=== PATIENT | female | born 1995 | race Asian ===

== ENCOUNTER → 2020-05-21 07:50 | Outpatient (CLI) | payer OTHER, SELFPAY ==
[2020-05-21 09:45] LABS: Hematocrit 33.6 % (36-46); Hemoglobin 11.2 g/dL (12.0-16.0)
[2020-05-21 10:14] LABS: GTT (PREG) 1 Hour PP 50gm Dose 145 mg/dL (76-139)
== END ==
PROVIDERS: PCP Student in an Organized Health Care Education/Training Program; Referring Provider Obstetrics & Gynecology; Visit Provider Obstetrics & Gynecology
DX: Z34.02 Encounter for supervision of normal first pregnancy, second trimester (principal)
CPT/HCPCS: 36415; 82950; 85014; 85018

== ENCOUNTER → 2020-05-27 07:49 | Outpatient (CLI) | payer OTHER, SELFPAY ==
[2020-05-27 09:04] LABS: Glucose Fasting Gestational 92 mg/dL (76-95)
[2020-05-27 10:35] LABS: Glucose 2 Hour Gest 121 mg/dL (76-155)
[2020-05-27 10:46] LABS: Glucose 1 Hour Gest 133 mg/dL (76-180)
[2020-05-27 11:10] LABS: Glucose Tol Interp,Gestational INTERPRETATION
[2020-05-27 11:41] LABS: Glucose 3 Hour Gest 122 mg/dL (76-140)
== END ==
PROVIDERS: PCP Student in an Organized Health Care Education/Training Program; Referring Provider Obstetrics & Gynecology; Visit Provider Obstetrics & Gynecology
DX: R73.09 Other abnormal glucose (principal)
CPT/HCPCS: 36415; 82951; 82952

== ENCOUNTER → 2020-07-31 12:03 | Outpatient (CLI) | payer OTHER, SELFPAY ==
[2020-08-01 11:21] LABS: Strep Grp B PCR NEG for Grp B Strep
== END ==
PROVIDERS: PCP Student in an Organized Health Care Education/Training Program; Visit Provider Obstetrics & Gynecology
DX: Z34.03 Encounter for supervision of normal first pregnancy, third trimester (principal); Z3A.36 36 weeks gestation of pregnancy
CPT/HCPCS: 87653

== ENCOUNTER 2020-08-17 07:24 | Inpatient (IN) | payer OTHER, SELFPAY ==
[2020-08-17 08:54] LABS: Add Manual Diff / Slide Review NO; Basophils Absolute Auto 100 /uL (0-100); Basophils Percent Auto 0.4 % (0-2); Eosinophils Absolute Auto 100 /uL (0-450); Eosinophils Percent Auto 0.4 % (2-4); Hematocrit 33.6 % (36-46); Hemoglobin 10.9 g/dL (12.0-16.0); Lymphocytes Absolute Auto 1100 /uL (1100-4500); Lymphocytes Percent Auto 5.8 % (25-40); Mean Corpuscular HGB Conc 32.6 % (30-36); Mean Corpuscular Hemoglobin 26.7 PG (26-34); Monocytes Absolute Auto 1000 /uL (0-900); Monocytes Percent Auto 5.5 % (3-14); Neutrophils Absolute Auto 16600 /uL (1500-7000); Neutrophils Percent Auto 87.9 % (50-75); Platelet Count 284 X10^3/uL (150-400); Red Blood Cell Count 4.09 X10^6/uL (4.0-5.2); Red Cell Distribution Width 14.9 % (11.6-14.8); White Blood Cell Count 18.8 X10^3/uL (4.5-11.0)
[2020-08-17 10:04] LABS: COVID19 - ADMIT (NP swab/PCR) Negative (Negative)
--- NOTE | 2020-08-17 11:18 | P.PCN_ITS ---
Regional Block Pre-procedure Procedure: Continuous Lumbar Epidural for L&D Attending OB provider: Lynette Paul PMH/ROS narrative: term labor, GHTN, well controlled on labetolol, no other complications. Hx: No personal or family history of anesthesia problems. ASA Class: II Labs: Hct 33.6 % (36-46) L 08/17/20 08:30 Plt Count 284 X10^3/uL (150-400) 08/17/20 08:30 Medications: Current Medications Generic Name Dose Route Start Last Admin Trade Name Freq PRN Reason Stop Dose Admin Calcium Carbonate 500 mg 08/17/20 07:48 Calcium Carbonate 500 Mg Tab PO Q2HR PRN Dyspepsia Carboprost Tromethamine 250 mcg 08/17/20 07:48 Carboprost 250 Mcg/Ml Ampul IM Q90M PRN Bleeding Diphenhydramine HCl 25 mg 08/17/20 10:38 Diphenhydramine 50 Mg/Ml Vial IV Q10M PRN Pruritis Fentanyl 50 mcg 08/17/20 07:48 Fentanyl 100 Mcg/2 Ml Inj IV Q1H PRN Pain, Moderate (4-6) Lactated Ringer's 1,000 mls @ 100 mls/hr 08/17/20 08:00 Lactated Ringers IV CONT EDGAR Oxytocin/Lactated Ringer's 30 unit in 500 mls @ 200 mls/hr 08/17/20 07:48 Oxytocin Premix IV CONT PRN Bleeding Protocol Tranexamic Acid 1,000 mg/ 100 mls @ 400 mls/hr 08/17/20 07:48 Sodium Chloride IV NOW PRN Bleeding FENT 2MCG/ML BUPIV 0.125% EPI 200 mcg in 100 mls @ 6 mls/hr 08/17/20 10:45 Fentanyl/Bupiv/Ns 2mcg/Ml - 0.125% EPIDURAL CONT EDGAR Methylergonovine Maleate 0.2 mg 08/17/20 07:48 Methylergonovine 0.2 Mg Tablet PO Q6HR PRN Heavy Bleeding Methylergonovine Maleate 0.2 mg 08/17/20 07:48 Methylergonovine 0.2 Mg/Ml Vial IM NOW PRN Bleeding Metoclopramide HCl 10 mg 08/17/20 07:48 Metoclopramide 10 Mg/2 Ml Inj IV NOW PRN Nausea And Vomiting Misoprostol 800 mcg 08/17/20 07:48 Misoprostol 200 Mcg Tablet NC NOW PRN Bleeding Misoprostol 1,000 mcg 08/17/20 07:48 Misoprostol 200 Mcg Tablet NC NOW PRN Bleeding Misoprostol 400 mcg 08/17/20 07:48 Misoprostol 200 Mcg Tablet SL NOW PRN Bleeding Naloxone HCl 0.2 mg 08/17/20 07:48 Naloxone 0.4 Mg/Ml Vial IV Q2MIN PRN Opiate Reversal Ondansetron HCl 4 mg 08/17/20 07:48 Ondansetron 4 Mg/2 Ml Inj IV Q4HR PRN Nausea And Vomiting Oxytocin 10 unit 08/17/20 07:48 Oxytocin 10 Unit/Ml Vial IM NOW PRN Bleeding Allergies: Allergies Allergy/AdvReac Type Severity Reaction Status Date / Time No Known Drug Allergies Allergy Verified 08/14/20 13:09 Procedure Insertion date: 08/17/20 Insertion time: 11:19 Prep/Local: betadine x3 Interspace: L2-3 Patient position: sitting Needle: 18 gauge [facility] Laboratory (CSE: 27g Pencan through [place], clear CSF, 1mL 0.25% bupiv) Loss of resistance with: saline ARDEN at (cm): 4 Catheter placed at SKIN (cm): 9 Catheter in SPACE (cm): 5 Insertion: No CSF, No Blood, No Paresthesia with insertion, No Paresthesia with injection and No Test dose reaction Initial Medications TEST DOSE time: 11:00 TEST DOSE: 1.5% lidocaine with epinephrine 1:200k (mL): 3 BOLUS DOSE time: 11:05 BOLUS DOSE (mL): 3 BOLUS DOSE med: other (infusate) Infusion INFUSION: 0.125% bupivacaine and with fentanyl 2 mcg/mL Initial rate (mL/hr): 6 Post-procedure Anesthesia time START: 10:50 Anesthesia time END: 14:35 Post-procedure Anesthesia Assessment: Yes CV function: HR/BP stable, Yes Resp function: RR/sat/airway adequate, Yes Post-op hydration adequate, Yes Pain control adequate, Yes Nausea & vomiting absent, Yes Mental status appropriate and No Anesthesia complications
--- NOTE | 2020-08-17 11:50 | P.HPOB_ITS ---
OB HPI Date/Time Date of admission: 08/17/20 Date Patient Seen: 08/17/20 Time Patient Seen: 10:10 History of Present Condition Chief complaint: LABOR : 1 Para: 0 Estimated Date of Delivery: 08/23/20 Estimated Gestational Age (weeks): 39+1 Narrative: Gail Gan is a 24 year old female 1 para 0 at 39-,1/7 weeks gestation who presents in active labor. Her contractions began at about 3:00 a.m. in the morning. By 630 they were regular every 3-5 minutes. She presented to Labor and delivery and was 4 cm dilated. History of Present care: good care, initiated at week # (11), number of visits (11) and pounds weight gain (47) Dating criteria: LMP confirmed by 1st trimester US Ultrasounds: normal 1st trimester US and normal mid trimester US Obstetrical complications: none Medical complications: none Preadmission Labs Blood type: O (+) positive -: Antibody screen: negative, GBS status: negative, HBsAG: negative, HIV: negative and RPR/VDLR: negative -: Chlamydia screen: not detected and Gonorrhea screen: not detected -: Rubella: immune and Varicella: immune HCT: 33.6 PAP: Abnormal (LGSIL) Integrated screen: Normal Urine: Negative 1 hr GTT: 145 3 hr GTT: 1 hr (133), 2 hr (121) and 3 hr (122) Fasting blood glucose: 92 Evaluation Evaluation Baseline heart rate: 140 Variability: Average (6-10) monitor accelerations: Present monitor decelerations: Variable Contraction Frequency (minutes): 3 Uterine Contraction Intensity: Strong/Firm Status: Category ll Cervical dilation (cm): 6 Cervical effacement (%): 100 station: -1 Laboratory results: Laboratory Tests 08/17/20 08/17/20 08/17/20 08:30 08:30 08:30 WBC 18.8 H RBC 4.09 Hgb 10.9 L Hct 33.6 L MCV 82.0 MCH 26.7 MCHC 32.6 RDW 14.9 H Plt Count 284 Neut % (Auto) 87.9 H Lymph % (Auto) 5.8 L [place] % (Auto) 5.5 Eos % (Auto) 0.4 L Baso % (Auto) 0.4 Neut # (Auto) 66669 H Lymph # (Auto) 1100 [place] # (Auto) 1000 H Eos # (Auto) 100 Baso # (Auto) 100 SARS-CoV-2 (PCR) Negative Blood Type O Positive Antibody Screen Negative PFSH Medical History (Updated 06/08/20 @ 21:22 by Terri Pedroza) Abnormal Pap smear of cervix (~2016) Chlamydia (~2019) Myopia Family History (Updated 05/21/20 @ 14:53 by Renee Dahl RN) Mother No problems noted. 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 ) Type(s) of exercise: walking and bicycling (has home gym. ) frequency: 3-4 times per week Meds Home Medications and Allergies Home Medications Medication Instructions Recorded Confirmed Type prenat.vits,juliano,[id number] 1 tab PO DAILY 05/21/20 08/14/20 History labetalol 100 mg tablet 100 mg PO DAILY #30 tab 05/27/20 08/14/20 Rx Double Electric breast Pump and #1 ea 06/19/20 08/14/20 Rx Supplies nystatin-triamcinolone 100,000 1 applic TOPICAL BID #30 g 07/17/20 08/14/20 Rx unit/gram-0.1 % topical ointment fluconazole 150 mg tablet 150 mg PO ONCE #1 tab 07/31/20 08/14/20 Rx Allergies Allergy/AdvReac Type Severity Reaction Status Date / Time No Known Drug Allergies Allergy Verified 08/14/20 13:09 Exam Vital Signs (past 8 hours): Generally: Patient comfortable with epidural in place Lungs: Clear to auscultation bilaterally Cardiovascular: Regular rate and rhythm Fundal height: 40 cm Estimated weight 7 1/2 to 8 lb Extremities: Trace edema, 1+ DTRs Objective Labs Result Diagrams: 08/17/20 08:30 Labs: Laboratory Results - last 24 hr 08/17/20 08/17/20 08/17/20 08:30 08:30 08:30 WBC 18.8 H RBC 4.09 Hgb 10.9 L Hct 33.6 L MCV 82.0 MCH 26.7 MCHC 32.6 RDW 14.9 H Plt Count 284 Neut % (Auto) 87.9 H Lymph % (Auto) 5.8 L [place] % (Auto) 5.5 Eos % (Auto) 0.4 L Baso % (Auto) 0.4 Neut # (Auto) 70895 H Lymph # (Auto) 1100 [place] # (Auto) 1000 H Eos # (Auto) 100 Baso # (Auto) 100 SARS-CoV-2 (PCR) Negative Blood Type O Positive Antibody Screen Negative Assessment and Plan Assessment and Plan Assessment and Plan narrative: Assessment: 24-year-old 1 para 0 at 39-,1/7 weeks gestation in active labor Comfortable with epidural Plan: AROM with moderate meconium-stained amniotic fluid Baby had several decels after rupture of membranes. Oxygen placed per face mask. IV fluid bolus given. Patient placed on her left side. Pediatrics notified OR notified Time Spent with Patient Total time spent with greater than 50% in coordination of care (as documented) at patient's floor/unit and/or counseling patient:: 15-24 minutes
[2020-08-17] MEDS: LACTATED RINGERS 1,000 ML 100 ML IV ×2 (12:30→16:05)
[2020-08-17 13:00] VITALS: BP 125/85
[2020-08-17] MEDS: OXYTOCIN PREMIX 30 UNIT/500 ML PLAST..BAG 200 UNIT IV (14:40)
[2020-08-17] MEDS: LIDOCAINE 1% 20 ML 5 ML SUBCUT (14:40)
--- NOTE | 2020-08-17 15:07 | PM.OBPRVD ---
Events: Induced HTN Labor & Delivery Delivery date: 08/17/20 Cervical ripening method: none Induction method: none Delivery augmentation: rupture of membranes (Moderate meconium-stained amniotic fluid) Delivery monitor: external FHT and external uterine Route of delivery: Episiotomy description: None L&D Laceration Description: Vaginal - 1st Degree and Superficial (Bilateral labial) Delivery repair: chromic Estimated blood loss (mL): 200 Anesthesia Type: Epidural Complications: None Narrative: Patient complete and pushed for 1 hour. At 2:35 p.m., a live female delivered spontaneously in the GELY presentation. There was a compound presentation with the left arm. There was a nuchal cord x1 and a body cord x1. The remainder of the body delivered without difficulty and was placed on mom's abdomen. The nose and mouth were suctioned with bulb suction. The cord was double clamped and cut. Pitocin given in the IV fluid. Cord bloods were obtained. The placenta delivered intact with a three-vessel cord at 2:38 p.m.. The fundus was massaged to firm. A first-degree vaginal and bilateral superficial labial lacerations were noted and repaired with 4-0 chromic on the labia, and 2 0 chromic on vaginal wall. Hemostasis was achieved. . Apgars 8 at 1 minute and 9 at 5 minutes. Epidural analgesia. Mom and stable to recovery. [place] Baby 1: gender: Female Presentation: vertex Position: Left Occiput Anterior Placenta delivery description: Spontaneous Cord Vessel Description: 3 Vessels, Nuchal Cord, Loose, Reduced and Around Body x1 score (1 min): 8 score (5 min): 9 weight: 6 lb 4 oz Plan for aftercare: Routine care
[2020-08-17] MEDS: LANOLIN OINT 7 GM 1 APPLIC TOP (17:23)
[2020-08-17] MEDS: DERMOPLAST SPRAY 20% 60 ML 1 SPRAY TOP (17:23)
[2020-08-17] MEDS: IBUPROFEN 600 MG TABLET PO ×2 (17:24→23:30)
[2020-08-18 06:04] LABS: Hematocrit 29.1 % (36-46); Hemoglobin 9.6 g/dL (12.0-16.0)
[2020-08-18 08:38] VITALS: BP 131/74; PULSE 81
[2020-08-18] MEDS: LABETALOL 100 MG TABLET PO (08:38)
[2020-08-18] MEDS: DOCUSATE 100 MG CAPSULE PO (08:39)
[2020-08-18] MEDS: PRENATAL VIT,CALC/IRON/FOLIC 1 TABLET 1 TAB PO (08:39)
[2020-08-18] MEDS: IBUPROFEN 600 MG TABLET PO (08:39)
--- NOTE | 2020-08-18 13:12 | PM.OBDS.1 ---
Discharge Providers Provider Date of admission: 08/17/20 07:24 Discharge Date: 08/18/20 Primary care physician: Gustavo Neal Consults: 08/17/20 07:50 Consult to Anesthesiology Urgent Comment: Gabino Consulting Provider: Anesthesiologist Reason for consultation: epidural Has provider been notified: Yes 08/18/20 15:04 Consult to [employer] Captain Routine Comment: Discharge provider: Lynette Paul MD Summary Hospital Course Date Patient Seen: 08/18/20 Time Patient Seen: 13:12 Diagnoses: Gestational age of 39-,2/7 weeks gestation Spontaneous vaginal delivery First-degree vaginal laceration and bilateral superficial labial lacerations Hospital Course: Patient is a 24 year a 1 para 1 who presented in active labor on August 17, 2020. She progressed to complete dilation and had a spontaneous vaginal delivery without complication. Her course was unremarkable. She is discharged home on day # 1. Peripartum Data Infant Delivery Method: Natural Vaginal Laceration Description: Vaginal - 1st Degree and Superficial (Bilateral labial) Episiotomy description: None Procedures: Epidural analgesia Spontaneous vaginal delivery Repair of first-degree vaginal and bilateral superficial labial lacerations complications: none 1: Gender: Female Disposition of : home Status at Discharge Cognitive/behavioral status at discharge: oriented Functional status at discharge: independent ambulation Overall status at discharge: patient is progressing back to baseline Time Spent with Patient Time attestation: Total time spent providing and/or coordinating discharge services: Time spent: Less than 30 minutes Objective Labs Result Diagrams: 08/18/20 05:50 Labs: Laboratory Results - last 24 hr 08/18/20 05:50 Hgb 9.6 L Hct 29.1 L Exam Vital Signs (past 8 hours): - 08/18/20 08:38 Pulse Rate 81 Blood Pressure 131/74 Narrative Exam Narrative: Generally: Patient is sitting up on edge of bed, no acute distress Fundus: Firm at U -1 Extremities: Negative Homans Discharge Plan Discharge Plan Patient Disposition: Home Provider Discharge Comment: Call with fever, chills, or bleeding vaginally more than a pad in an hour Ibuprofen 600mg every 6 hours as needed for cramping Discharge orders & Medications Prescriptions: Continued labetalol 100 mg tablet 100 mg PO DAILY Qty: 30 RF: 3 prenat.vits,juliano,[id number] Tablet 1 tab PO DAILY RF: 0 No Action (DME) Double Electric breast Pump and Supplies See Rx Instructions .ROUTE .MEDSUPPLY Qty: 1 RF: 0 Follow up/Referrals: Lynette Paul MD [Physician] - 6 Weeks Diet/Activity/Treatments Diet: Regular Activity: Nothing in the vagina for 6 weeks Skin/Wound/Dressing Care Report to your healthcare provider any signs of infection, such as:: chills, fever, increased pain and unusual drainage Visit Report/Discharge Packet Instructions: DI for Labor and Delivery, Vaginal Discharge Data Primary Care Provider: Gustavo Neal
[2020-08-18 13:59] VITALS: BP 131/74; PULSE 81; RESP 18; TEMP 36.7
== END 2020-08-18 15:45 | disposition home or self-care (01) | DRG 807 ==
PROVIDERS: Admitting Provider Obstetrics & Gynecology; PCP Student in an Organized Health Care Education/Training Program; Referring Provider Obstetrics & Gynecology; Visit Provider Obstetrics & Gynecology
DX: O13.4 Gestational [pregnancy-induced] hypertension without significant proteinuria, complicating childbirth (principal); Z37.0 Single live birth; Z3A.39 39 weeks gestation of pregnancy; O77.0 Labor and delivery complicated by meconium in amniotic fluid; O69.81X0 Labor and delivery complicated by cord around neck, without compression, not applicable or unspecified; O70.0 First degree perineal laceration during delivery; Z20.822 Contact with and (suspected) exposure to COVID-19
CPT/HCPCS: 01967; 36415; 59050; 59410; 85014; 85018; 85025; 86850; 86900; 86901; 87635; C9803; G0379; J2590

== ENCOUNTER → 2021-12-23 12:05 | Outpatient (CLI) | payer OTHER, SELFPAY ==
[2021-12-23 14:47] LABS: Add Manual Diff / Slide Review NO; Basophils Absolute Auto 0 /uL (0-100); Basophils Percent Auto 0.2 % (0-2); Eosinophils Absolute Auto 300 /uL (0-450); Eosinophils Percent Auto 2.9 % (2-4); Hematocrit 36.3 % (36-46); Hemoglobin 12.6 g/dL (12.0-16.0); Lymphocytes Absolute Auto 2000 /uL (1100-4500); Lymphocytes Percent Auto 20.2 % (25-40); Mean Corpuscular HGB Conc 34.7 % (30-36); Mean Corpuscular Hemoglobin 29.1 PG (26-34); Mean Corpuscular Volume 83.9 fL (80-100); Monocytes Absolute Auto 500 /uL (0-900); Monocytes Percent Auto 5.4 % (3-14); Neutrophils Absolute Auto 7000 /uL (1500-7000); Neutrophils Percent Auto 71.3 % (50-75); Platelet Count 300 X10^3/uL (150-400); Red Blood Cell Count 4.33 X10^6/uL (4.0-5.2); Red Cell Distribution Width 13.6 % (11.6-14.8); White Blood Cell Count 9.8 X10^3/uL (4.5-11.0)
[2021-12-23 15:53] LABS: Appearance Urine UA CLEAR; Bilirubin Urine UA NEGATIVE (NEGATIVE); Color Urine UA YELLOW; Glucose Urine UA NEGATIVE (Negative); Ketones Urine UA 1+ (NEGATIVE); Leukocyte Esterase Urine UA 3+ (NEGATIVE); Nitrite Urine UA NEGATIVE (Negative); Occult Blood Urine UA 1+ (Negative); Protein Urine UA NEGATIVE (Negative); Urobilinogen Urine UA 0.2 E.U./dL (0.2)
[2021-12-23 15:59] LABS: pH Urine UA 6.5 (4.5-8.0)
[2021-12-23 16:17] LABS: Bacteria Urine Moderate (10-30); Culture Indicated Urine Specimen Cultured; RBC Urine None Seen (0-5/HPF); Squamous Epithelial Cell Urine 1-5 /HPF (0-5/HPF); Transitional Epi Cells Urine 1-5/HPF (0-5/HPF); WBC Urine 10-30/HPF (0-5/HPF)
[2021-12-24 07:36] LABS: Varicella IgG Antibody 466 index (Immune >165)
[2021-12-24 13:59] LABS: RPR Screen Non Reactive (Non Reactive)
[2021-12-24 16:14] LABS: Hepatitis B Surface Antigen NEGATIVE s/c (NEGATIVE)
[2021-12-24 16:30] LABS: HIV 1 & 2 Ab/Ag 4th Gen Combo NEGATIVE (NEGATIVE); Hep C Virus Ab w/Reflex Quant NEGATIVE s/c (NEGATIVE)
== END ==
PROVIDERS: PCP Student in an Organized Health Care Education/Training Program; Referring Provider Obstetrics & Gynecology; Visit Provider Obstetrics & Gynecology
DX: Z34.81 Encounter for supervision of other normal pregnancy, first trimester (principal)
CPT/HCPCS: 36415; 80055; 81003; 81015; 86787; 86803; 86850; 86900; 86901; 87086; 87389

== ENCOUNTER → 2022-01-20 15:00 | Outpatient (CLI) | payer OTHER, SELFPAY ==
[2022-01-23 19:43] LABS: AFP Value 33.2 ng/mL (.); Gest Age on Col Date 19.1 weeks (.); Insulin Dep Diabetes No (.); OSBR Risk 1IN 10000 (.); Results Report (.); Test Results *Screen Negative* (.)
== END ==
PROVIDERS: PCP Student in an Organized Health Care Education/Training Program; Referring Provider Obstetrics & Gynecology; Visit Provider Obstetrics & Gynecology
DX: Z34.82 Encounter for supervision of other normal pregnancy, second trimester (principal); Z3A.18 18 weeks gestation of pregnancy
CPT/HCPCS: 36415; 82105

== ENCOUNTER → 2022-01-27 10:43 | Outpatient (CLI) | payer OTHER, SELFPAY ==
--- NOTE | 2022-01-27 10:44 | DI.US.S_ITS ---
PROCEDURE: US OB >= 14 WEEKS FETUS INDICATIONS: ANATOMY OUTSIDE/PRIOR DATING DATA: Last menstrual period (LMP): 09/21/2021 LMP-based estimated date of delivery (JAG): 06/28/2022 First dating scan (date and location): 12/23/2021 Estimated date of delivery (JAG) from first dating scan: 06/17/2022 TECHNIQUE: Real-time scanning was performed of the fetus, with image documentation and biometric measurements. Endovaginal scanning: Not performed today COMPARISON: 12/23/2021 FINDINGS: General: Presentation: Breech Placenta: Posterior, without previa Amniotic fluid index: Upper limit of normal measuring 19.6 centimeters heart rate: 160 beats per minute Maternal cervical canal: 5.9 centimeters biometrics: Biparietal diameter: 4.6 centimeters Head circumference: 17.3 centimeters Abdominal circumference: 14.9 centimeters Femur length: 3.1 centimeters Clinically estimated gestational age: 19 weeks and 6 days based on prior dating Composite gestational age from present scan: 20 weeks Estimated weight and percentile: 320 grams, 48th percentile Anatomic survey: Neuro: Ventricles are non-dilated at less than 10 mm. Cisterna magna is normal at 3-11 mm. Cerebellum is normal in size and morphology. Nuchal skin fold: Nuchal fold measures 6 millimeters, at the upper limit of normal. Face: Nose and lips, facial profile are normal. Spine: No evidence for spina bifida. Heart: 4-chambered heart is present, with normal ventricular outflow tracts. Diaphragm: Diaphragm is intact. Stomach: Left-sided stomach is present. Kidneys: No hydronephrosis. Normal is less than 5 mm in 2nd trimester, less than 7 mm in 3rd trimester. Cord: 3-vessel cord has orthotopic insertion. Bladder: Normal in size. Extremities: All 4 extremities identified. IMPRESSION: Living intrauterine gestation at 19 weeks and 6 days based on prior dating. Biometry today is concordant, with EFW at the 48th percentile. Nuchal fold is at the upper limit of normal measuring 6 millimeters. This is of uncertain significance in the absence of other abnormalities. Correlation with maternal risk factors and other data is recommended. Otherwise normal and complete anatomic survey. We strive to produce accurate, complete, and clear reports of imaging services. To assist us in improving patient care, this report was composed using standard report templates and voice recognition software. Therefore, it may contain abnormal punctuation, insertions and/or omissions. Occasional wrong-word or sound-alike substitutions may occur. Though we review the report and make efforts to correct it, we do recommend that the report be read carefully in proper context to recognize any text inaccuracies. Dictated by: Unruly Deras M.D. on 01/27/2022 at 13:18 Approved by: Unruly Deras M.D. on 01/27/2022 at 13:23
== END ==
PROVIDERS: PCP Student in an Organized Health Care Education/Training Program; Referring Provider Obstetrics & Gynecology; Visit Provider Obstetrics & Gynecology
DX: Z34.82 Encounter for supervision of other normal pregnancy, second trimester (principal); Z3A.20 20 weeks gestation of pregnancy
CPT/HCPCS: 76811

== ENCOUNTER → 2022-03-10 07:49 | Outpatient (CLI) | payer OTHER, SELFPAY ==
[2022-03-10 10:51] LABS: Hematocrit 33.4 % (36-46); Hemoglobin 11.5 g/dL (12.0-16.0)
[2022-03-10 11:12] LABS: GTT (PREG) 1 Hour PP 50gm Dose 116 mg/dL (76-139)
== END ==
PROVIDERS: PCP Student in an Organized Health Care Education/Training Program; Referring Provider Obstetrics & Gynecology; Visit Provider Obstetrics & Gynecology
DX: Z34.82 Encounter for supervision of other normal pregnancy, second trimester (principal); Z3A.26 26 weeks gestation of pregnancy
CPT/HCPCS: 36415; 82950; 85014; 85018

== ENCOUNTER → 2022-05-05 08:57 | Outpatient (CLI) | payer OTHER, SELFPAY ==
[2022-05-05 11:40] LABS: Creatinine Urine Random 210.8 mg/dL; Protein (Total) Urine Random 9 mg/dL (0-12); Protein Creatinine Ratio Urine 0.04 GRAM/24H
== END ==
PROVIDERS: PCP Student in an Organized Health Care Education/Training Program; Visit Provider Obstetrics & Gynecology
DX: O12.13 Gestational proteinuria, third trimester (principal); Z3A.33 33 weeks gestation of pregnancy
CPT/HCPCS: 82570; 84156

== ENCOUNTER → 2022-05-05 09:04 | Outpatient (CLI) | payer OTHER, SELFPAY ==
[2022-05-05 09:54] LABS: Add Manual Diff / Slide Review NO; Basophils Absolute Auto 0 /uL (0-100); Basophils Percent Auto 0.2 % (0-2); Eosinophils Absolute Auto 100 /uL (0-450); Eosinophils Percent Auto 1.1 % (2-4); Hematocrit 35.8 % (36-46); Lymphocytes Absolute Auto 2000 /uL (1100-4500); Lymphocytes Percent Auto 19.4 % (25-40); Mean Corpuscular HGB Conc 33.6 % (30-36); Mean Corpuscular Hemoglobin 27.5 PG (26-34); Mean Corpuscular Volume 81.9 fL (80-100); Monocytes Absolute Auto 600 /uL (0-900); Monocytes Percent Auto 5.8 % (3-14); Neutrophils Absolute Auto 7700 /uL (1500-7000); Neutrophils Percent Auto 73.5 % (50-75); Platelet Count 240 X10^3/uL (150-400); Red Blood Cell Count 4.37 X10^6/uL (4.0-5.2); Red Cell Distribution Width 13.4 % (11.6-14.8); White Blood Cell Count 10.4 X10^3/uL (4.5-11.0)
[2022-05-05 10:16] LABS: Alanine Aminotransferase 36 IU/L (<35); Albumin 3.6 g/dL (3.5-5.0); Albumin Globulin Ratio 1.1 (1.0-2.8); Alkaline Phosphatase 126 U/L (38-126); Aspartate Aminotransferase 38 IU/L (14-36); Bilirubin Total 0.3 mg/dL (0.2-1.3); Bilirubin Unconjugated 0.3 mg/dL (0.0-1.1); Globulin 3.4 g/dL (1.7-4.1); HEMOLYSIS < 15 (0-50); Uric Acid 4.1 mg/dL (2.5-6.2)
== END ==
PROVIDERS: PCP Student in an Organized Health Care Education/Training Program; Referring Provider Obstetrics & Gynecology; Visit Provider Obstetrics & Gynecology
DX: O10.913 Unspecified pre-existing hypertension complicating pregnancy, third trimester (principal); O12.13 Gestational proteinuria, third trimester; Z3A.33 33 weeks gestation of pregnancy
CPT/HCPCS: 36415; 80076; 82570; 84156; 84550; 85025

== ENCOUNTER → 2022-05-19 16:30 | Outpatient (CLI) | payer OTHER, SELFPAY ==
[2022-05-20 12:00] LABS: Strep Grp B PCR NEG for Grp B Strep
== END ==
PROVIDERS: PCP Student in an Organized Health Care Education/Training Program; Visit Provider Obstetrics & Gynecology
DX: Z34.83 Encounter for supervision of other normal pregnancy, third trimester (principal); Z3A.35 35 weeks gestation of pregnancy
CPT/HCPCS: 87653

== ENCOUNTER → 2022-05-19 16:38 | Outpatient (CLI) | payer OTHER, SELFPAY ==
[2022-05-19 16:58] LABS: Add Manual Diff / Slide Review NO; Basophils Absolute Auto 0 /uL (0-100); Basophils Percent Auto 0.4 % (0-2); Eosinophils Absolute Auto 100 /uL (0-450); Eosinophils Percent Auto 1.5 % (2-4); Hematocrit 32.8 % (36-46); Hemoglobin 11.3 g/dL (12.0-16.0); Lymphocytes Absolute Auto 2100 /uL (1100-4500); Lymphocytes Percent Auto 23.1 % (25-40); Mean Corpuscular HGB Conc 34.3 % (30-36); Mean Corpuscular Volume 81.7 fL (80-100); Monocytes Absolute Auto 800 /uL (0-900); Monocytes Percent Auto 9.3 % (3-14); Neutrophils Absolute Auto 6000 /uL (1500-7000); Neutrophils Percent Auto 65.7 % (50-75); Platelet Count 253 X10^3/uL (150-400); Red Blood Cell Count 4.02 X10^6/uL (4.0-5.2); Red Cell Distribution Width 14.4 % (11.6-14.8); White Blood Cell Count 9.1 X10^3/uL (4.5-11.0)
[2022-05-19 17:12] LABS: Alanine Aminotransferase 16 IU/L (<35); Alkaline Phosphatase 142 U/L (38-126); Aspartate Aminotransferase 23 IU/L (14-36); Bilirubin Total 0.3 mg/dL (0.2-1.3); Bilirubin Unconjugated 0.3 mg/dL (0.0-1.1); HEMOLYSIS < 15 (0-50)
== END ==
PROVIDERS: PCP Student in an Organized Health Care Education/Training Program; Referring Provider Obstetrics & Gynecology; Visit Provider Obstetrics & Gynecology
DX: O99.891 Other specified diseases and conditions complicating pregnancy; O10.913 Unspecified pre-existing hypertension complicating pregnancy, third trimester; R74.01 Elevation of levels of liver transaminase levels; Z3A.35 35 weeks gestation of pregnancy
CPT/HCPCS: 36415; 80076; 85025; 87653

== ENCOUNTER 2022-06-02 10:03 | Outpatient (CLI) | payer OTHER, SELFPAY | END 2022-06-02 10:49 | disposition home or self-care (01) | LOC: LABOR 10:23 → OB 06-05 13:51 | PROVIDERS: PCP Student in an Organized Health Care Education/Training Program; Referring Provider Obstetrics & Gynecology; Visit Provider Obstetrics & Gynecology | DX: Z34.83 Encounter for supervision of other normal pregnancy, third trimester (principal); Z3A.37 37 weeks gestation of pregnancy | CPT/HCPCS: 59025; G0378; G0379 ==

== ENCOUNTER 2022-06-09 21:49 | Inpatient (IN) | payer OTHER, MEDICAID, SELFPAY ==
--- NOTE | 2022-06-09 22:41 | PM.OBHP.IH.1 ---
OB HPI Date/Time Date of admission: 06/09/22 Date Patient Seen: 06/09/22 Time Patient Seen: 22:42 History of Present Condition Chief complaint: observation of labor JAG Calculator Estimated Delivery Date Method Current WG Current Estimate 06/17/22 Ultrasound #1 38w 6d Other Estimates 06/28/22 LMP (Uncertain) 37w 2d Estimated Gestational Age (weeks): 38.6 : 2 Para: 1 Narrative: 26YO @ [id number] by early US presents for evaluation of labor. Scheduled for IOL tonight for chronic HTN and increasing BPs, managed with labetalol 100mg PO BID. Strong contractions began spontaneously at 5pm and have steadily progressed in frequency and intensity. Now breathing through strong contractions every 2 minutes and requesting an epidural. No headache, vision changes, RUQ pain, increased edema or LOF. Routine care w/ . care: good care, initiated at week # (14), number of visits (10) and pounds weight gain (32) Dating criteria OB: based on 1st trimester US only Ultrasounds: normal mid trimester US Medical complications OB: cardiovascular (Chronic hypertension) Indications Indication for induction OB: other (Chronic hypertension) Preadmission Labs Last OB Lab Results: Blood Type O Positive 12/23/21 13:06 Antibody Screen Negative 12/23/21 13:06 Hematocrit 34.1 % (36-46) L 06/09/22 22:52 Hemoglobin 11.2 g/dL (12.0-16.0) L 06/09/22 22:52 Hepatitis B Surface Antigen Negative s/c (NEGATIVE) 12/23/21 13:06 Hepatitis C Antibody Negative s/c (NEGATIVE) 12/23/21 13:06 Rubella Antibody 18.0 IU/mL (>15) 12/23/21 13:06 Varicella-Zoster IgG Antibody 466 index (Immune >165) 12/23/21 13:06 Glucose 1 Hour 116 mg/dL (76-139) 03/10/22 08:46 Group B Streptococcus (PCR) Neg for grp b strep 05/19/22 16:30 Prior (ies) Past Pregnancies Del. Date GA/Weeks Labor Lgth Wt Sex Route Outcome Anesthesia Place Delv Breastfeed Preg Comp Name 08/17/20 39.1 8 2.835 kg vaginal live - full term [facility] 3 months other [facility] Evaluation Evaluation Baseline heart rate: 130 Variability: Moderate (11-25) monitor accelerations: Present Monitor Decelerations: Variable Contraction Frequency (minutes): 2 Uterine Contraction Intensity: Strong/Firm Status: Category ll Comments: CE by RN: 7-8cm/[facility] Medical History Abnormal Pap smear of cervix (~2015) Chlamydia (~2018) Hypertension (~2020) Myopia Surgical History H/O colposcopy with cervical biopsy Family History Mother No problems noted. 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 ) special ivonne needs: No travel history: over 6 months ago seatbelt use: always water heater temp set < 120 deg: Yes working smoke detector in home: Yes fire extinguisher in home: Yes carbon monox detector in home: Yes firearms in home: No do you feel safe at home: Yes Smoking Status: Never smoker second hand exposure: No alcohol intake: former (rarely, never while ) substance use type: does not use during the past year weight has: other (still losing baby weight) well-balanced diet: daily or most days daily servings fruits/ve-4 caffeine: Yes (aware of 200mg limit) Type(s) of exercise: walking and bicycling (stationary bike) frequency: 3-4 times per week Meds Home Medications and Allergies Home Medications Medication Instructions Recorded Confirmed Type prenat.vits,juliano,typ-[id number]-[id number] 1 tab PO DAILY 05/21/20 06/09/22 History labetalol 100 mg tablet 100 mg PO BID Hypertension #60 tabs 12/23/21 06/09/22 Rx Double Electric Breast Pump #1 ea 03/17/22 06/09/22 Rx Allergies Allergy/AdvReac Type Severity Reaction Status Date / Time No Known Drug Allergies Allergy Verified 06/09/22 10:05 OB Exam Vital signs Blood Pressure: 142/93 Pulse Rate: 80 Temperature: 98.2 F Resp Effort & Inspection: normal respiratory effort and able to speak in complete sentences Auscultation: clear to auscultation bilaterally Presentation: vertex Objective Labs 06/09/22 22:15 Assessment and Plan Assessment and Plan Assessment and Plan narrative: A: Term Primipara Active Labor Chronic HTN No indication for GBS prophylaxis Cat II FHR, overall reassuring P: Admit, routine orders with preeclampsia panel. Epidural SHIREEN. Expectant management. Anticipate rapid NSVB.
[2022-06-09 22:51] VITALS: BP 142/93; PULSE 80; TEMP 36.8
[2022-06-09 23:10] LABS: Add Manual Diff / Slide Review NO; Basophils Absolute Auto 100 /uL (0-100); Basophils Percent Auto 0.5 % (0-2); Eosinophils Absolute Auto 200 /uL (0-450); Eosinophils Percent Auto 1.4 % (2-4); Hematocrit 34.1 % (36-46); Hemoglobin 11.2 g/dL (12.0-16.0); Lymphocytes Absolute Auto 2100 /uL (1100-4500); Lymphocytes Percent Auto 19.7 % (25-40); Mean Corpuscular HGB Conc 32.8 % (30-36); Mean Corpuscular Hemoglobin 27.2 PG (26-34); Mean Corpuscular Volume 82.9 fL (80-100); Monocytes Absolute Auto 800 /uL (0-900); Monocytes Percent Auto 7.5 % (3-14); Neutrophils Absolute Auto 7700 /uL (1500-7000); Neutrophils Percent Auto 70.9 % (50-75); Platelet Count 219 X10^3/uL (150-400); Red Blood Cell Count 4.11 X10^6/uL (4.0-5.2); Red Cell Distribution Width 15.4 % (11.6-14.8); White Blood Cell Count 10.9 X10^3/uL (4.5-11.0)
[2022-06-09 23:15] LABS: Aspartate Aminotransferase 25 IU/L (14-36); BUN Creatinine Ratio 14.7 (6-22); Blood Urea Nitrogen 10 mg/dL (7-17); Estimated Glomerular Filt Rate > 60 mL/min (>60); Uric Acid 4.3 mg/dL (2.5-6.2)
[2022-06-09] MEDS: LACTATED RINGERS 1,000 ML 100 ML IV ×2 (23:17)
[2022-06-09 23:36] VITALS: BP 147/73
--- NOTE | 2022-06-10 01:09 | P.PCNOB_ITS ---
Labor & Delivery Delivery date: 06/10/22 Intrapartal Events: None Cervical ripening method: none Induction method: none Delivery monitor: external FHT and external uterine Route of delivery: Episiotomy description: None L&D Laceration Description: None Quantitative Blood Loss: 25 Anesthesia Type: Epidural Narrative: Patient received adequate epidural anesthesia and continued to labor well without augmentation. Began felling rectal pressure with urge to push at 0020 at C/C/-1. SROM occurred with initial pushes for copious clear fluid with 2 pieces of meconium. Remaining fluid through delivery was clear. Coaching, encouragement and strong maternal efforts led to NSVB of a viable baby boy in PIA position. was sommersaulted through a single loose nuchal cord. The shoulders delivered easily, without additional maneuvers. [place] was placed on maternal abdomen for drying, stimulation and skin to skin. Apgars 7/9. After cessation of pulsation, the cord was double clamped by CNM and cut by FOB. 30 units of pitocin in 500mL LR was started at 250mL/hr for active management of the third stage of labor. Cord blood sample was collected. Gentle cord traction and single maternal push led to spontaneous, Schultze delivery of an apparently intact placenta, membranes and 3VC. Fundus immediately firm and bleeding scant. Vagina and perineum inspected and intact. QBL 25mL. Both mother and baby stable and skin to skin as I left the room. Baby 1: Infant gender: Male Presentation: vertex Position: Left Occiput Anterior Placenta delivery description: Spontaneous Cord Vessel Description: 3 Vessels, Nuchal Cord and Loose score (1 min): 7 score (5 min): 9 weight: 3.225 kg Plan for aftercare: Routine care
[2022-06-10 01:25] VITALS: BP 124/88; PULSE 100; RESP 18; TEMP 37
[2022-06-10] MEDS: FENT 2MCG/ML BUPIV 0.125% EPI 200 MCG/100 ML PLAST..BAG 10 MCG EPIDURAL (01:49)
[2022-06-10] MEDS: OXYTOCIN 10 UNIT/ML VIAL IM (01:51)
[2022-06-10] MEDS: LABETALOL 100 MG TABLET PO ×2 (10:09→17:04)
[2022-06-10] MEDS: KETOROLAC 30 MG/ML VIAL IV (10:09)
[2022-06-10] MEDS: IBUPROFEN 600 MG TABLET PO (16:08)
[2022-06-10] MEDS: NIFEdipine 30 MG TAB ER PO (17:05)
[2022-06-10 21:04] VITALS: BP 136/89; PULSE 78
[2022-06-10] MEDS: LABETALOL 100 MG TABLET 200 MG PO (21:04)
[2022-06-10] MEDS: LANOLIN OINT 7 GM 1 APPLIC TOP (21:05)
[2022-06-11 09:05] VITALS: BP 133/88; PULSE 102
[2022-06-11] MEDS: LABETALOL 100 MG TABLET 200 MG PO (09:05)
[2022-06-11] MEDS: NIFEdipine 30 MG TAB ER PO (09:07)
== END 2022-06-11 12:44 | disposition home or self-care (01) | DRG 807 ==
PROVIDERS: Admitting Provider Nurse Practitioner Obstetrics & Gynecology; PCP Student in an Organized Health Care Education/Training Program; Referring Provider Nurse Practitioner Obstetrics & Gynecology; Visit Provider Nurse Practitioner Obstetrics & Gynecology
DX: O10.92 Unspecified pre-existing hypertension complicating childbirth (principal); Z37.0 Single live birth; O42.02 Full-term premature rupture of membranes, onset of labor within 24 hours of rupture; O69.81X0 Labor and delivery complicated by cord around neck, without compression, not applicable or unspecified; Z3A.38 38 weeks gestation of pregnancy
CPT/HCPCS: 36415; 59025; 59050; 84450; 84550; 85025; 86850; 86900; 86901; G0379; J1885; J2590

== ENCOUNTER 2023-09-10 13:45 | Outpatient (RCR) | payer OTHER, SELFPAY ==
--- NOTE | 2023-08-10 17:28 | PT.OIE ---
Current Diagnoses Muscle weakness (generalized) (08/10/23) Stress incontinence (female) (male) (08/10/23) Urge incontinence (08/10/23) Past Medical History (Last Updated 07/23/22 @ 10:07 by Karishma Lanier PA-C) Abnormal Pap smear of cervix (~2015) Chlamydia (~2018) Hypertension (~2020) Myopia Past Surgical History (Last Reviewed 06/09/22 @ 22:45 by Louise Moore CNM) H/O colposcopy with cervical biopsy Visit Care Team Role Provider Type Gustavo Neal Family Provider Non-Staff Primary Care Provider Specialty: Medical Address: [address] [place] [address], [id number] Email: Josi Samaniego DO Attending Provider Non-Staff Referring Provider Specialty: Medical Address: [address] [place] [address], [phone] Fax: Email: Physical Therapy Initial Evaluation PT-OP-A Visit Information Start: 08/06/23 18:40 Freq: Status: Active Protocol: Document 08/10/23 13:45 LRN (Rec: 08/10/23 17:26 LRN [id number]) Out-Patient Physical Therapy Visit Information Visit Information Visit Type Initial Evaluation Visit Start Time 13:45 Visit Stop Time 14:33 Visit Number 05/21 Evaluation Information Evaluation Date 08/10/23 Precautions Precautions High blood pressure is being monitored. L handed. PT-OP-B Current Condition Start: 08/06/23 18:40 Freq: Status: Active Protocol: Document 08/10/23 13:45 LRN (Rec: 08/10/23 17:26 LRN [id number]) Current Condition History of Current Condition Onset Date 2 months after of son, History of Current Condition 2 months after of son, . Son is 13 months old. Urinary leakage with coughing , sneezing, hard laughing, with exer squatting. Doesn't run. Prior Treatments and Tests none Developmental History Developmental History Son born 06/10/22. Her job requires lifting of wgts as high as 50-100# (with help). 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 Treatment Goals Patient/Caregiver Goals Pt goal is: strengthening the PF to prevent urinary leakage with coughing, sneezing, hard laughing, exer squatting, and sometimes lifting. HEP. Personal Factors Other Personal Factors That May Effect Blood pressure being monitored Therapy/Recovery for HBP. PT-OP-C Subjective Start: 08/06/23 18:40 Freq: Status: Active Protocol: Document 08/10/23 13:45 LRN (Rec: 08/10/23 17:26 LRN [id number]) Patient Questionnaires Pelvic Pain and Urgency/Frequency Patient Symptom Scale Pelvic Pain Score 8 PT-OP-I Pelvic Floor Start: 08/06/23 18:40 Freq: Status: Active Protocol: Document 08/10/23 13:45 LRN (Rec: 08/10/23 17:26 LRN [id number]) Pelvic Floor Assessment Urine Urinary Symptoms Hesitancy,Dribbling After Urination,Falling Out Feeling/ Heavy,Pain Other Urinary Symptoms Lower abdomen if waiting too long. Leakage Size Small Leakage Cause Cough,Exercise,Lifting,Sneeze, Urge Leaks Per Day 1-2 Voiding Frequency 6x/day Nocturia 1x Bowel Bowel Movement Frequency 1 [place] Stool Chart Type 1-7 4 Pelvic Clock Pelvic Clock 6-9 Tenderness Pelvic Clock 9-12 Tenderness Pelvic Clock Other Deep PF muscle tenderness at Pelvic Clock 1-11. Prolapse Cystocele Grade 1 Prolapse Comments Extra tissue felt at PF clock 6. Perineal Descent Resting Absent Bearing Present Contraction Ability Voluntary Contraction Weak Voluntary Relaxation Weak Manual Muscle Testing Left 1 Manual Muscle Testing Right 2 Manual Muscle Testing Anterior 1 Manual Muscle Testing Posterior 2 Muscle Endurance (Seconds) 6 Number of Quick Contractions In 10 6 Seconds PT-OP-J Posture/Palpation/Skin Start: 08/06/23 18:40 Freq: Status: Active Protocol: Document 08/10/23 13:45 LRN (Rec: 08/10/23 17:26 LRN [id number]) Posture Evaluation Position Standing T-Spine Posture Flattened Thorax Posture Bases Flared L-Spine Posture Increased Lordosis Shoulder Posture (R) Elevated Scapula Posture (L) Neutral,(R) Neutral Arm Posture (L) Internally Rotated,(R) Internally Rotated Pelvis Posture Anteriorly Tilted Weight Distribution Balanced Foot Arch (L) High Arch,(R) High Arch Palpation Assessment Location Abdomen Palpation Location DR Palpation Details Umbilicus 3 above: closed Umbilicus 2 above: 1 finger widths, very shallow. Umbilicus 1 above: 1 finger width, shallow Umbilicus Umbilicus: 1 below: closed PT-OP-K Range of Motion Start: 08/06/23 18:40 Freq: Status: Active Protocol: Document 08/10/23 13:45 LRN (Rec: 08/10/23 17:26 LRN [id number]) Lumbar Spine Range of Motion Lumbar Spine Active Degrees Testing Position Standing Flexion 90 Extension 5 Rotation Left 20 Rotation Right 20 Lateral Flexion Left 20 Lateral Flexion Right 20 Hip Goniometric Range of Motion Hip Right Passive Testing Position Supine Internal Rotation 30 External Rotation 70 Comments Pop sound occurs with active R hip flexion. Left Passive Testing Position Supine Internal Rotation 30 External Rotation 60 PT-OP-M Strength Start: 08/06/23 18:40 Freq: Status: Active Protocol: Document 08/10/23 13:45 LRN (Rec: 08/10/23 17:26 LRN [id number]) Trunk Strength Trunk Manual Muscle Testing Core Stabilization Pt is not able to maintain core stability with lifting of legs against gravity and with MMT of LE's Hip Strength Hip Manual Muscle Testing Right Comments Strength is 5/5. Left Extension (S1) 3 Fair Comments Strength is 5/5 except as indicated above. PT-OP-Q Treatments Start: 08/06/23 18:40 Freq: Status: Active Protocol: Document 08/10/23 13:45 LRN (Rec: 08/10/23 17:26 LRN [id number]) Self-Care/Home Management Treatment Education Other Education Discussed results of evaluation, goals, and plan of care (POC) with pt, discussed attendance/cx/dns policy; pt agreeable to goals, attendance /cx/dns policy and POC. Issued, discussed, & reviewed Bladder Diary for pt to complete over the next 7 days. Explained how to fill out diary and counting of urination times. Activities Self-Care/Home Management Activities Issued & reviewed HEP: David ex's and discussed exercise of Quick Flicks, Long Holds. PT-OP-T Assessment and Plan Start: 08/06/23 18:40 Freq: Status: Active Protocol: Document 08/10/23 13:45 LRN (Rec: 08/10/23 17:26 LRN [id number]) Physical Therapy Assessment Rehab Potential Rehabilitation Potential Good Evaluation Complexity Number of Personal Factors/Comorbidities 1-2 Number of Body Systems Impaired 4 or More Clinical Presentation at Evaluation Evolving Impairments Impairments Activity Tolerance, Coordination,Pain,ROM,Strength ,Transfers Goals Three Impairment PF weakness with urinary leakage with a strong urge. Short Term Goal (STG) Pt will be educated in urinary delay technique. STG Duration 2 wks- 08/25/23 Skilled Nursing Goal (LTG) Pt will be able to maintain continence in the presence of a strong urge and while walking to the bathroom. LTG Duration 8 wks-10/29/23 Two Impairment Stress urinary incontinence with leakage 1-2x/day Short Term Goal (STG) Pt will be educated in intra- abdominal core pressure management by coordinating Kegels and breathwork with transfers, ADLs, body mechanics, and exercise. STG Duration 5 wks-09/10/23 Skilled Nursing Goal (LTG) Increase PF strength with pt able to maintain continence with coughing, sneezing, hard laughing, with exer squatting , and sometimes lifting, reducing or eliminating onset of urinary leakage. LTG Duration 8 wks-10/29/23 One Impairment Pt lacks appropriate self care HEP. Short Term Goal (STG) Pt will be able to isolate a PF contraction without overuse of the outer abdominal, gluteal, and hip AD muscles. STG Duration 3 wks-09/01/23 Skilled Nursing Goal (LTG) Pt will be independent with a self care HEP of PF strengthening, L hip strengthening, and hip ROM (IR , L ER) exercises. LTG Duration 11 wks-10/29/23 Assessment Summary Assessment Pt is a 27 yo female with stress urinary incontinence due to PF weakness with greatest weakness in anterior and L lateral wall. She leaks 1-2x/day with small leaking and has lower abdominal pain if waiting to urinate too long . She has tenderness of Pelvic Clock 6-11. Per internal palpation she seems to have a slight cystocele and has extra tissue palpated in regon of rectum, indicating a possible rectocele starting. Her hip mobility is limited with IR and tigher with L hip ER. She has a popping in audible with R hip flexion, but location of popping was undetermined. The pt did not have pain with popping; therefore may not be a problem unless instability is noted at a later time. Hip strength is normal except L hip ext is 3/5. Pt will benefit from skilled physical therapy to achieve the above stated goals . Physical Therapy Plan Frequency and Duration Frequency of Treatment 1x/Week Duration of treatment (weeks) 11 Plan of Care Start Date 08/10/23 Plan of Care End Date 10/29/23 Therapeutic Interventions Therapeutic Interventions Coordination Training,Home Exercise Program,Joint Mobilizations,Manual Therapy, Neuromuscular Re-education, Self-Care/Home Management,Soft Tissue Mobilization, Therapeutic Activities, Therapeutic Exercises Modalities Biofeedback,Electric Stimulation Next Visit Focus/Plan Next Note Type Treatment Note Next Visit Plan Next: Assess bladder diary and bowel involvement with recommendations as appropriate . Add Aggrevators to Kegel HEP. Vemg Biofeedback for PF strengthening and stim for proper PF contraction awareness training. Education : urge deference technique. HEP: hip IR and L ER stretching and hip ext strengthening. Manual: Assess for sacral balancing. Abdominal STM ( region of urachus, bladder, uterus). Education: intra-abdominal core pressure management by coordinating Kegels and breathwork with transfers, ADLs, body mechanics, and exercise. and isolation of PF contraction w/o overuse of the outer abdominal, gluteal, and hip AD muscles.
--- NOTE | 2023-08-10 17:28 | PT.OPPOC ---
Physical, Occupational & Speech Therapy At [facility] Current Diagnoses Muscle weakness (generalized) (08/10/23) Stress incontinence (female) (male) (08/10/23) Urge incontinence (08/10/23) Visit Care Team Role Provider Type Gustavo Neal Family Provider Non-Staff Primary Care Provider Specialty: Medical Address: [address] [place] [address], [id number] Email: Josi Samaniego DO Attending Provider Non-Staff Referring Provider Specialty: Medical Address: [address] [place] [address], [phone] Fax: Email: Plan Of Care PT-OP-T Assessment and Plan Start: 08/06/23 18:40 Freq: Status: Active Protocol: Document 08/10/23 13:45 LRN (Rec: 08/10/23 17:26 LRN [id number]) Physical Therapy Assessment Rehab Potential Rehabilitation Potential Good Evaluation Complexity Number of Personal Factors/Comorbidities 1-2 Number of Body Systems Impaired 4 or More Clinical Presentation at Evaluation Evolving Impairments Impairments Activity Tolerance, Coordination,Pain,ROM,Strength ,Transfers Goals Three Impairment PF weakness with urinary leakage with a strong urge. Short Term Goal (STG) Pt will be educated in urinary delay technique. STG Duration 2 wks- 08/25/23 Jail Goal (LTG) Pt will be able to maintain continence in the presence of a strong urge and while walking to the bathroom. LTG Duration 8 wks-10/29/23 Two Impairment Stress urinary incontinence with leakage 1-2x/day Short Term Goal (STG) Pt will be educated in intra- abdominal core pressure management by coordinating Kegels and breathwork with transfers, ADLs, body mechanics, and exercise. STG Duration 5 wks-09/10/23 Jail Goal (LTG) Increase PF strength with pt able to maintain continence with coughing, sneezing, hard laughing, with exer squatting , and sometimes lifting, reducing or eliminating onset of urinary leakage. LTG Duration 8 wks-10/29/23 One Impairment Pt lacks appropriate self care HEP. Short Term Goal (STG) Pt will be able to isolate a PF contraction without overuse of the outer abdominal, gluteal, and hip AD muscles. STG Duration 3 wks-09/01/23 Detasseler Goal (LTG) Pt will be independent with a self care HEP of PF strengthening, L hip strengthening, and hip ROM (IR , L ER) exercises. LTG Duration 11 wks-10/29/23 Assessment Summary Assessment Pt is a 27 yo female with stress urinary incontinence due to PF weakness with greatest weakness in anterior and L lateral wall. She leaks 1-2x/day with small leaking and has lower abdominal pain if waiting to urinate too long . She has tenderness of Pelvic Clock 6-11. Per internal palpation she seems to have a slight cystocele and has extra tissue palpated in regon of rectum, indicating a possible rectocele starting. Her hip mobility is limited with IR and tigher with L hip ER. She has a popping in audible with R hip flexion, but location of popping was undetermined. The pt did not have pain with popping; therefore may not be a problem unless instability is noted at a later time. Hip strength is normal except L hip ext is 3/5. Pt will benefit from skilled physical therapy to achieve the above stated goals . Physical Therapy Plan Frequency and Duration Frequency of Treatment 1x/Week Duration of treatment (weeks) 11 Plan of Care Start Date 08/10/23 Plan of Care End Date 10/29/23 Therapeutic Interventions Therapeutic Interventions Coordination Training,Home Exercise Program,Joint Mobilizations,Manual Therapy, Neuromuscular Re-education, Self-Care/Home Management,Soft Tissue Mobilization, Therapeutic Activities, Therapeutic Exercises Modalities Biofeedback,Electric Stimulation Next Visit Focus/Plan Next Note Type Treatment Note Next Visit Plan Next: Assess bladder diary and bowel involvement with recommendations as appropriate . Add Aggrevators to Kegel HEP. Vemg Biofeedback for PF strengthening and stim for proper PF contraction awareness training. Education : urge deference technique. HEP: hip IR and L ER stretching and hip ext strengthening. Manual: Assess for sacral balancing. Abdominal STM ( region of urachus, bladder, uterus). Education: intra-abdominal core pressure management by coordinating Kegels and breathwork with transfers, ADLs, body mechanics, and exercise. and isolation of PF contraction w/o overuse of the outer abdominal, gluteal, and hip AD muscles. Plan of Care Dates Plan of Care Start Date 08/10/23 Plan of Care End Date 10/29/23 Electronically Signed by: Jolynn Rojas, PT 08/10/23 1728 If you are in agreement with this Plan of Care, please return a signed and dated copy. I have reviewed this Plan of Care and certify that the skilled therapy services above are required to meet the patient?s needs. Physician Signature Date Printed Name and Credentials Clinical Instructor Signature Printed Name and Credentials
--- NOTE | 2023-08-16 16:10 | PT.OTN ---
Current Diagnoses Muscle weakness (generalized) (08/16/23) Stress incontinence (female) (male) (08/16/23) Urge incontinence (08/16/23) Physical Therapy Treatment Note PT-OP-A Visit Information Start: 08/06/23 18:40 Freq: Status: Active Protocol: Document 08/16/23 13:50 LRN (Rec: 08/16/23 14:31 LRN [id number]) Out-Patient Physical Therapy Visit Information Visit Information Visit Type Treatment Note Visit Start Time 13:50 Visit Stop Time 14:29 Visit Number 06/21 Evaluation Information Evaluation Date 08/10/23 Precautions Precautions High blood pressure is being monitored. L handed. PT-OP-B Current Condition Start: 08/06/23 18:40 Freq: Status: Active Protocol: Document 08/10/23 13:45 LRN (Rec: 08/10/23 17:26 LRN [id number]) Current Condition History of Current Condition Onset Date 2 months after of son, History of Current Condition 2 months after of son, . Son is 13 months old. Urinary leakage with coughing , sneezing, hard laughing, with exer squatting. Doesn't run. Prior Treatments and Tests none Developmental History Developmental History Son born 06/10/22. Her job requires lifting of wgts as high as 50-100# (with help). 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 Treatment Goals Patient/Caregiver Goals Pt goal is: strengthening the PF to prevent urinary leakage with coughing, sneezing, hard laughing, exer squatting, and sometimes lifting. HEP. Personal Factors Other Personal Factors That May Effect Blood pressure being monitored Therapy/Recovery for HBP. PT-OP-C Subjective Start: 08/06/23 18:40 Freq: Status: Active Protocol: Document 08/16/23 13:50 LRN (Rec: 08/16/23 14:31 LRN [id number]) OP-PT Subjective Patient Comments Patient Comments States did only 2 days of bladder diary. Doing Kegels 2x /day. PT-OP-I Pelvic Floor Start: 08/06/23 18:40 Freq: Status: Active Protocol: Document 08/10/23 13:45 LRN (Rec: 08/10/23 17:26 LRN [id number]) Pelvic Floor Assessment Urine Urinary Symptoms Hesitancy,Dribbling After Urination,Falling Out Feeling/ Heavy,Pain Other Urinary Symptoms Lower abdomen if waiting too long. Leakage Size Small Leakage Cause Cough,Exercise,Lifting,Sneeze, Urge Leaks Per Day 1-2 Voiding Frequency 6x/day Nocturia 1x Bowel Bowel Movement Frequency 1 [place] Stool Chart Type 1-7 4 Pelvic Clock Pelvic Clock 6-9 Tenderness Pelvic Clock 9-12 Tenderness Pelvic Clock Other Deep PF muscle tenderness at Pelvic Clock 1-11. Prolapse Cystocele Grade 1 Prolapse Comments Extra tissue felt at PF clock 6. Perineal Descent Resting Absent Bearing Present Contraction Ability Voluntary Contraction Weak Voluntary Relaxation Weak Manual Muscle Testing Left 1 Manual Muscle Testing Right 2 Manual Muscle Testing Anterior 1 Manual Muscle Testing Posterior 2 Muscle Endurance (Seconds) 6 Number of Quick Contractions In 10 6 Seconds PT-OP-J Posture/Palpation/Skin Start: 08/06/23 18:40 Freq: Status: Active Protocol: Document 08/10/23 13:45 LRN (Rec: 08/10/23 17:26 LRN [id number]) Posture Evaluation Position Standing T-Spine Posture Flattened Thorax Posture Bases Flared L-Spine Posture Increased Lordosis Shoulder Posture (R) Elevated Scapula Posture (L) Neutral,(R) Neutral Arm Posture (L) Internally Rotated,(R) Internally Rotated Pelvis Posture Anteriorly Tilted Weight Distribution Balanced Foot Arch (L) High Arch,(R) High Arch Palpation Assessment Location Abdomen Palpation Location DR Palpation Details Umbilicus 3 above: closed Umbilicus 2 above: 1 finger widths, very shallow. Umbilicus 1 above: 1 finger width, shallow Umbilicus Umbilicus: 1 below: closed PT-OP-K Range of Motion Start: 08/06/23 18:40 Freq: Status: Active Protocol: Document 08/10/23 13:45 LRN (Rec: 08/10/23 17:26 LRN [id number]) Lumbar Spine Range of Motion Lumbar Spine Active Degrees Testing Position Standing Flexion 90 Extension 5 Rotation Left 20 Rotation Right 20 Lateral Flexion Left 20 Lateral Flexion Right 20 Hip Goniometric Range of Motion Hip Right Passive Testing Position Supine Internal Rotation 30 External Rotation 70 Comments Pop sound occurs with active R hip flexion. Left Passive Testing Position Supine Internal Rotation 30 External Rotation 60 PT-OP-M Strength Start: 08/06/23 18:40 Freq: Status: Active Protocol: Document 08/10/23 13:45 LRN (Rec: 08/10/23 17:26 LRN [id number]) Trunk Strength Trunk Manual Muscle Testing Core Stabilization Pt is not able to maintain core stability with lifting of legs against gravity and with MMT of LE's Hip Strength Hip Manual Muscle Testing Right Comments Strength is 5/5. Left Extension (S1) 3 Fair Comments Strength is 5/5 except as indicated above. PT-OP-Q Treatments Start: 08/06/23 18:40 Freq: Status: Active Protocol: Document 08/16/23 13:50 LRN (Rec: 08/16/23 14:31 LRN [id number]) Therapeutic Exercises Supine Exercises Vemg PF strengthening Supine Exercise Name Vemg PF strengthening 10 SH Equipment Used Bolster Reps/Minutes 11' (8' Xtra time for donning electrode and for set up) Comments 10:10; intensity 13, 50 pps Kegel isolated Supine Exercise Name Isolated Kegel traning Reps/Minutes 3' Comments Pt able to contraction w/o abdomen/gluteals and hip AD tightening. Neuro Re-Education Treatment Other Activities Vemg PF awareness training Details Vemg stim for PF contractions. Strengthening (see above) after awareness Reps/Duration 5' Vemg biofeedback Details Vemg Biofeedback: Resting, quick and long hold Kegels Reps/Duration 5' Comments Supine legs on bolster. NO pain with insertion of electrode. Time taken for set up, but unable to get feedback unit to opperate correctly. Self-Care/Home Management Treatment Education Patient Education Home Exercise Program Other Education Discussed and educated pt in PF Aggrevator contractions. Discussed results of review of bladder diary, discussed fluid intake (AM/PM), lengths of void, voiding frequency. Pt lengthy education and discussion in Urinary urge technique with handout issued. Activities Self-Care/Home Management Activities Issued & reviewed Bladder retraining/urge deference technique. HEP: Added Aggrevator Kegel ex's. PT-OP-T Assessment and Plan Start: 08/06/23 18:40 Freq: Status: Active Protocol: Document 08/16/23 13:50 LRN (Rec: 08/16/23 14:31 LRN [id number]) Physical Therapy Assessment Goals Three Impairment PF weakness with urinary leakage with a strong urge. Short Term Goal (STG) Pt will be educated in urinary delay technique. 08/16/23 Pt educated in urinary delay technique. STG Duration 2 wks- 08/25/23 (08/16/23: MET GOAL) Assisted Goal (LTG) Pt will be able to maintain continence in the presence of a strong urge and while walking to the bathroom. LTG Duration 8 wks-10/29/23 Two Impairment Stress urinary incontinence with leakage 1-2x/day Short Term Goal (STG) Pt will be educated in intra- abdominal core pressure management by coordinating Kegels and breathwork with transfers, ADLs, body mechanics, and exercise. STG Duration 5 wks-09/10/23 Assisted Goal (LTG) Increase PF strength with pt able to maintain continence with coughing, sneezing, hard laughing, with exer squatting , and sometimes lifting, reducing or eliminating onset of urinary leakage. LTG Duration 8 wks-10/29/23 One Impairment Pt lacks appropriate self care HEP. Short Term Goal (STG) Pt will be able to isolate a PF contraction without overuse of the outer abdominal, gluteal, and hip AD muscles. 08/16/23: I/S pt in PF contraction in isolation of substitute ms. Pt able to isolate if concentrating on isolation. STG Duration 3 wks-09/01/23 (08/16/23: MET GOAL, pt needs review) Vascular Sonographer Goal (LTG) Pt will be independent with a self care HEP of PF strengthening, L hip strengthening, and hip ROM (IR , L ER) exercises. 08/16/23: Kegels (quick/long holds initially issued ), Aggrevator, and urge deference technique. LTG Duration 11 wks-10/29/23 progressed 08/16/23 Assessment Summary Assessment Pt is a 27 yo female with stress urinary incontinence due to PF weakness with greatest weakness in anterior and L lateral wall, normal bowels. Per bladder diary review, pt has normal times between voids (every 4 hrs) and drinks mainly water, void times are a little long at 10- 15 secs and leakage occurs only during the day. Pt appears to be able to isolate her PF contractions, but was not able to verify per Vemg Biofeedback due to computer difficulties. Pt now has good awareness of PF contraction with use of stim during strengthening. Physical Therapy Plan Frequency and Duration Frequency of Treatment 1x/Week Duration of treatment (weeks) 11 Plan of Care Start Date 08/10/23 Plan of Care End Date 10/29/23 Next Visit Focus/Plan Next Note Type Treatment Note Next Visit Plan Next: Vemg Biofeedback for PF strengthening and stim for PF strengthening if needed. Review urge deference technique. HEP: hip IR and L ER stretching and hip ext strengthening. Manual: Assess for sacral balancing. Abdominal STM ( region of urachus, bladder, uterus). Education: intra-abdominal core pressure management by coordinating Kegels and breathwork with transfers, ADLs, body mechanics, and exercise. and isolation of PF contraction w/o overuse of the outer abdominal, gluteal, and hip AD muscles.
--- NOTE | 2023-08-27 16:10 | PT.OTN ---
Current Diagnoses Muscle weakness (generalized) (09/10/23) Stress incontinence (female) (male) (09/10/23) Urge incontinence (09/10/23) Physical Therapy Treatment Note PT-OP-A Visit Information Start: 08/06/23 18:40 Freq: Status: Active Protocol: Document 11/30/23 13:51 LRN (Rec: 08/27/23 14:49 LRN [id number]) Out-Patient Physical Therapy Visit Information Visit Information Visit Type Treatment Note Visit Start Time 13:51 Visit Stop Time 14:32 Visit Number 07/19 Evaluation Information Evaluation Date 08/10/23 Precautions Precautions High blood pressure is being monitored. L handed. PT-OP-B Current Condition Start: 08/06/23 18:40 Freq: Status: Active Protocol: Document 08/10/23 13:45 LRN (Rec: 08/10/23 17:26 LRN [id number]) Current Condition History of Current Condition Onset Date 2 months after of son, History of Current Condition 2 months after of son, . Son is 13 months old. Urinary leakage with coughing , sneezing, hard laughing, with exer squatting. Doesn't run. Prior Treatments and Tests none Developmental History Developmental History Son born 06/10/22. Her job requires lifting of wgts as high as 50-100# (with help). 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 Treatment Goals Patient/Caregiver Goals Pt goal is: strengthening the PF to prevent urinary leakage with coughing, sneezing, hard laughing, exer squatting, and sometimes lifting. HEP. Personal Factors Other Personal Factors That May Effect Blood pressure being monitored Therapy/Recovery for HBP. PT-OP-C Subjective Start: 08/06/23 18:40 Freq: Status: Active Protocol: Document 11/30/23 13:51 LRN (Rec: 08/27/23 14:49 LRN [id number]) OP-PT Subjective Patient Comments Patient Comments Less leaking with an urge using the urge deference technique. PT-OP-I Pelvic Floor Start: 08/06/23 18:40 Freq: Status: Active Protocol: Document 09/10/23 13:50 LRN (Rec: 09/10/23 14:38 LRN [id number]) Pelvic Floor Assessment SEMG (uV) Baseline 0.9 Quick Contraction 12 10 Second Contraction 16.1 Recruitment Pattern Good Relaxation Fair Holding Fair Stability of Hold Poor/Slow SEMG Stability of Rest Fair Comments Pelvic Floor Comments Quick Flicks: 10 reps strength (uV's): avg work 12, avg rest 6.8. 20 reps strength (uV's): avg work 10.6, avg rest 6.3. Long Holds: 10 reps strength (uV's): avg work 16.1, avg rest 4.8. 20 reps strength (uV's): avg work 14.5, avg rest 3.4. PT-OP-J Posture/Palpation/Skin Start: 08/06/23 18:40 Freq: Status: Active Protocol: Document 08/10/23 13:45 LRN (Rec: 08/10/23 17:26 LRN [id number]) Posture Evaluation Position Standing T-Spine Posture Flattened Thorax Posture Bases Flared L-Spine Posture Increased Lordosis Shoulder Posture (R) Elevated Scapula Posture (L) Neutral,(R) Neutral Arm Posture (L) Internally Rotated,(R) Internally Rotated Pelvis Posture Anteriorly Tilted Weight Distribution Balanced Foot Arch (L) High Arch,(R) High Arch Palpation Assessment Location Abdomen Palpation Location DR Palpation Details Umbilicus 3 above: closed Umbilicus 2 above: 1 finger widths, very shallow. Umbilicus 1 above: 1 finger width, shallow Umbilicus Umbilicus: 1 below: closed PT-OP-K Range of Motion Start: 08/06/23 18:40 Freq: Status: Active Protocol: Document 08/10/23 13:45 LRN (Rec: 08/10/23 17:26 LRN [id number]) Lumbar Spine Range of Motion Lumbar Spine Active Degrees Testing Position Standing Flexion 90 Extension 5 Rotation Left 20 Rotation Right 20 Lateral Flexion Left 20 Lateral Flexion Right 20 Hip Goniometric Range of Motion Hip Right Passive Testing Position Supine Internal Rotation 30 External Rotation 70 Comments Pop sound occurs with active R hip flexion. Left Passive Testing Position Supine Internal Rotation 30 External Rotation 60 PT-OP-M Strength Start: 08/06/23 18:40 Freq: Status: Active Protocol: Document 08/10/23 13:45 LRN (Rec: 08/10/23 17:26 LRN [id number]) Trunk Strength Trunk Manual Muscle Testing Core Stabilization Pt is not able to maintain core stability with lifting of legs against gravity and with MMT of LE's Hip Strength Hip Manual Muscle Testing Right Comments Strength is 5/5. Left Extension (S1) 3 Fair Comments Strength is 5/5 except as indicated above. PT-OP-Q Treatments Start: 08/06/23 18:40 Freq: Status: Active Protocol: Document 11/30/23 13:51 LRN (Rec: 08/27/23 14:49 LRN [id number]) Therapeutic Exercises Supine Exercises Pelvic stabilization awareness Supine Exercise Name Pelvis stabilizing in neutral training via r leg lift or R knee march Side right Reps/Minutes 20' Comments Pt able to become aware of holding neutral pelvis w/LE mvmt, after training L hip ER stretch Supine Exercise Name L Fig 4 stretch Side left Reps/Minutes 2' Comments Extra time for training. Piriformis stretch Supine Exercise Name Ankle over knee>KTC, & knee to opp shouder Side bilateral Reps/Minutes 1-2' each type Comments Extra time to determine max angela position of each Kegel isolated Supine Exercise Name Isolated Kegel traning Reps/Minutes 5' Comments Pt able to contraction w/o abdomen/gluteals and hip AD tightening. Prone Exercises Hip Ext strengthening Prone Exercise Name Cued to breath with leg lifts Side bilateral Comments Cued to keep TA tight and maintain pelvis in NS by tightening trunk rot's. Standing Exercises Hip Ext strengthening Standing Exercise Name Hip Extension lifts - pt not able to maintain core stability. Side bilateral Comments Cued for TA and rotator tightening to prevent pelvic rotation. Therapeutic Activity Therapeutic Activity Transfers w/breathwork Name sup<>sidelie<>sit<>stand transfers coordinating breathwork. Reps/Minutes 6' Self-Care/Home Management Treatment Education Patient Education Home Exercise Program Activities Self-Care/Home Management Activities Issued & reviewed HEP: yadiel Piriformis stretch, Lateral Hip stretch, L hip ER stretch; Hip ext strengthening (prone & standing). Issued & reviewed self care handout for core pressure mgmt with transfers. PT-OP-T Assessment and Plan Start: 08/06/23 18:40 Freq: Status: Active Protocol: Document 11/30/23 16:40 LRN (Rec: 11/30/23 16:09 LRN [id number]) Physical Therapy Assessment Goals Three Impairment PF weakness with urinary leakage with a strong urge. Short Term Goal (STG) Pt will be educated in urinary delay technique. 08/16/23 Pt educated in urinary delay technique. STG Duration 2 wks- 08/25/23 (08/16/23: MET GOAL) Alf Goal (LTG) Pt will be able to maintain continence in the presence of a strong urge and while walking to the bathroom. LTG Duration 8 wks-10/29/23 (11/30/23: NOT MET GOAL) Two Impairment Stress urinary incontinence with leakage 1-2x/day Short Term Goal (STG) Pt will be educated in intra- abdominal core pressure management by coordinating Kegels and breathwork with transfers, ADLs, body mechanics, and exercise. 08/27/23: Pt educated in core pressure management with transfers. STG Duration 5 wks-09/10/23 progressed 08/27/23 (need for ADLs body mech & ex) Art Framing Manager Goal (LTG) Increase PF strength with pt able to maintain continence with coughing, sneezing, hard laughing, with exer squatting , and sometimes lifting, reducing or eliminating onset of urinary leakage. LTG Duration 8 wks-10/29/23 (11/30/23: NOT MET GOAL) One Impairment Pt lacks appropriate self care HEP. Short Term Goal (STG) Pt will be able to isolate a PF contraction without overuse of the outer abdominal, gluteal, and hip AD muscles. 08/16/23: I/S pt in PF contraction in isolation of substitute ms. Pt able to isolate if concentrating on isolation. 09/10/23: Pt appears to have a good understanding of isolating PF contractions, although cuing needed during individual Kegel ex's. STG Duration 3 wks-09/01/23 (09/10/23: MET GOAL) Art Framing Manager Goal (LTG) Pt will be independent with a self care HEP of PF strengthening, L hip strengthening, and hip ROM (IR , L ER) exercises. 08/16/23: Kegels (quick/long holds initially issued ), Aggrevator, and urge deference technique. LTG Duration 11 wks-10/29/23 progressed 08/16/23 Assessment Summary Assessment Pt is a 27 yo female referred for stress urinary incontinence due to PF weakness with greatest weakness in anterior (slight cytocele) and L lateral wall and lower abdominal pain if waiting to long to urinate, bowels are normal, tenderness of Pelvic Clock 6-11. The pt was last seen 09/10/23 and was only seen for 3 treatment visits. Attempt to contact pt was unsuccessful. The pt did not meet all her goals and she is now beyond her plan of care date. The pt will need a new referral if physical therapy is needed. The pt is being discharged from PT. Physical Therapy Plan Discharge Physical Therapy Discharge Reasons No Longer Attending PT Discharge Comments Thank you for your referral.
--- NOTE | 2023-09-10 15:53 | PT.OTN ---
Current Diagnoses Muscle weakness (generalized) (09/10/23) Stress incontinence (female) (male) (09/10/23) Urge incontinence (09/10/23) Physical Therapy Treatment Note PT-OP-A Visit Information Start: 08/06/23 18:40 Freq: Status: Active Protocol: Document 09/10/23 13:50 LRN (Rec: 09/10/23 14:38 LRN [id number]) Out-Patient Physical Therapy Visit Information Visit Information Visit Type Treatment Note Visit Start Time 13:51 Visit Stop Time 14:31 Visit Number 08/19 Evaluation Information Evaluation Date 08/10/23 Precautions Precautions High blood pressure is being monitored. L handed. PT-OP-B Current Condition Start: 08/06/23 18:40 Freq: Status: Active Protocol: Document 08/10/23 13:45 LRN (Rec: 08/10/23 17:26 LRN [id number]) Current Condition History of Current Condition Onset Date 2 months after of son, History of Current Condition 2 months after of son, . Son is 13 months old. Urinary leakage with coughing , sneezing, hard laughing, with exer squatting. Doesn't run. Prior Treatments and Tests none Developmental History Developmental History Son born 06/10/22. Her job requires lifting of wgts as high as 50-100# (with help). 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 Treatment Goals Patient/Caregiver Goals Pt goal is: strengthening the PF to prevent urinary leakage with coughing, sneezing, hard laughing, exer squatting, and sometimes lifting. HEP. Personal Factors Other Personal Factors That May Effect Blood pressure being monitored Therapy/Recovery for HBP. PT-OP-C Subjective Start: 08/06/23 18:40 Freq: Status: Active Protocol: Document 09/10/23 13:50 LRN (Rec: 09/10/23 14:38 LRN [id number]) OP-PT Subjective Patient Comments Patient Comments Leaking with an urge is about the same, just a little bit. PT-OP-I Pelvic Floor Start: 08/06/23 18:40 Freq: Status: Active Protocol: Document 09/10/23 13:50 LRN (Rec: 09/10/23 14:38 LRN [id number]) Pelvic Floor Assessment SEMG (uV) Baseline 0.9 Quick Contraction 12 10 Second Contraction 16.1 Recruitment Pattern Good Relaxation Fair Holding Fair Stability of Hold Poor/Slow SEMG Stability of Rest Fair Comments Pelvic Floor Comments Quick Flicks: 10 reps strength (uV's): avg work 12, avg rest 6.8. 20 reps strength (uV's): avg work 10.6, avg rest 6.3. Long Holds: 10 reps strength (uV's): avg work 16.1, avg rest 4.8. 20 reps strength (uV's): avg work 14.5, avg rest 3.4. PT-OP-J Posture/Palpation/Skin Start: 08/06/23 18:40 Freq: Status: Active Protocol: Document 08/10/23 13:45 LRN (Rec: 08/10/23 17:26 LRN [id number]) Posture Evaluation Position Standing T-Spine Posture Flattened Thorax Posture Bases Flared L-Spine Posture Increased Lordosis Shoulder Posture (R) Elevated Scapula Posture (L) Neutral,(R) Neutral Arm Posture (L) Internally Rotated,(R) Internally Rotated Pelvis Posture Anteriorly Tilted Weight Distribution Balanced Foot Arch (L) High Arch,(R) High Arch Palpation Assessment Location Abdomen Palpation Location DR Palpation Details Umbilicus 3 above: closed Umbilicus 2 above: 1 finger widths, very shallow. Umbilicus 1 above: 1 finger width, shallow Umbilicus Umbilicus: 1 below: closed PT-OP-K Range of Motion Start: 08/06/23 18:40 Freq: Status: Active Protocol: Document 08/10/23 13:45 LRN (Rec: 08/10/23 17:26 LRN [id number]) Lumbar Spine Range of Motion Lumbar Spine Active Degrees Testing Position Standing Flexion 90 Extension 5 Rotation Left 20 Rotation Right 20 Lateral Flexion Left 20 Lateral Flexion Right 20 Hip Goniometric Range of Motion Hip Right Passive Testing Position Supine Internal Rotation 30 External Rotation 70 Comments Pop sound occurs with active R hip flexion. Left Passive Testing Position Supine Internal Rotation 30 External Rotation 60 PT-OP-M Strength Start: 08/06/23 18:40 Freq: Status: Active Protocol: Document 08/10/23 13:45 LRN (Rec: 08/10/23 17:26 LRN [id number]) Trunk Strength Trunk Manual Muscle Testing Core Stabilization Pt is not able to maintain core stability with lifting of legs against gravity and with MMT of LE's Hip Strength Hip Manual Muscle Testing Right Comments Strength is 5/5. Left Extension (S1) 3 Fair Comments Strength is 5/5 except as indicated above. PT-OP-Q Treatments Start: 08/06/23 18:40 Freq: Status: Active Protocol: Document 09/10/23 13:50 LRN (Rec: 09/10/23 14:38 LRN [id number]) Therapeutic Exercises Supine Exercises Piriformis stretch Supine Exercise Name Ankle over knee>KTC Side bilateral Reps/Minutes 1-2' each Comments Extra time for training review Prone Exercises Hip Ext strengthening Prone Exercise Name Able to maintain core stability w/phys & v, Cued to breath w/leg lifts Side bilateral Reps/Minutes 15', extra time for training. Comments Cued to keep TA tight and maintain pelvis in NS by tightening trunk rot's. Sitting Exercises L hip ER Sitting Exercise Name Hip ER stretch Side left Reps/Minutes 1-2' each Comments Extra time for training. Piriformis stretch Sitting Exercise Name Piriformis stretch (knee to opp shdr) Side bilateral Reps/Minutes 1-2' each Comments Extra time for training review Neuro Re-Education Treatment Other Activities Vemg biofeedback Details Vemg Biofeedback: Resting, quick and long hold Kegels Reps/Duration 18' Comments Supine legs on bolster. NO pain with insertion of electrode. PT-OP-T Assessment and Plan Start: 08/06/23 18:40 Freq: Status: Active Protocol: Document 09/10/23 13:50 LRN (Rec: 09/10/23 14:38 LRN [id number]) Physical Therapy Assessment Goals Three Impairment PF weakness with urinary leakage with a strong urge. Short Term Goal (STG) Pt will be educated in urinary delay technique. 08/16/23 Pt educated in urinary delay technique. STG Duration 2 wks- 08/25/23 (08/16/23: MET GOAL) Correction Goal (LTG) Pt will be able to maintain continence in the presence of a strong urge and while walking to the bathroom. LTG Duration 8 wks-10/29/23 Two Impairment Stress urinary incontinence with leakage 1-2x/day Short Term Goal (STG) Pt will be educated in intra- abdominal core pressure management by coordinating Kegels and breathwork with transfers, ADLs, body mechanics, and exercise. 08/27/23: Pt educated in core pressure management with transfers. STG Duration 5 wks-09/10/23 progressing 08/27/23 (need for ADLs body mech & ex) System Administration Advisor Goal (LTG) Increase PF strength with pt able to maintain continence with coughing, sneezing, hard laughing, with exer squatting , and sometimes lifting, reducing or eliminating onset of urinary leakage. LTG Duration 8 wks-10/29/23 One Impairment Pt lacks appropriate self care HEP. Short Term Goal (STG) Pt will be able to isolate a PF contraction without overuse of the outer abdominal, gluteal, and hip AD muscles. 08/16/23: I/S pt in PF contraction in isolation of substitute ms. Pt able to isolate if concentrating on isolation. 09/10/23: Pt appears to have a good understanding of isolating PF contractions, although cuing needed during individual Kegel ex's. STG Duration 3 wks-09/01/23 (09/10/23: MET GOAL) Correction Goal (LTG) Pt will be independent with a self care HEP of PF strengthening, L hip strengthening, and hip ROM (IR , L ER) exercises. 08/16/23: Kegels (quick/long holds initially issued ), Aggrevator, and urge deference technique. LTG Duration 11 wks-10/29/23 progressed 08/16/23 Assessment Summary Assessment Pt is a 27 yo female with stress urinary incontinence due to PF weakness with greatest weakness in anterior (slight cytocele) and L lateral wall and lower abdominal pain if waiting to long to urinate, bowels are normal, tenderness of Pelvic Clock 6-11. Today pt shows poor recall of hip stretches as she is reporting doing them only every other day. Pt showed improper core stab with hip ext to start; improved after training. Per Vemg assessment and ex, pt shows fairly good quick contraction, poor resting stability and strength lasting ~ 5 reps. With long holds she shows good initial contraction, diminished stability of hold and progressive diminished strength and relaxation to minimal by end of 20 reps; showing declining endurance notable after 10 reps. Physical Therapy Plan Frequency and Duration Frequency of Treatment 1x/Week Duration of treatment (weeks) 11 Plan of Care Start Date 08/10/23 Plan of Care End Date 10/29/23 Next Visit Focus/Plan Next Note Type Treatment Note Next Visit Plan Next: Re-Review issued HEP: hip stretches & hip ext strengthening. Education core pressure management of Kegels /breathwork with ADLs, body mechanics, and exercise. Stim for PF strengthening if needed. Vemg Biofeedback for PF strengthening. Manual: Assess for sacral balancing. Abdominal STM ( region of urachus, bladder, uterus). Education: isolation of PF contraction w/o overuse of the outer abdominal, gluteal, and hip AD muscles. PF strengthening focus on anterior and lateral guerrero ( posterior is 2/5).
--- NOTE | 2023-09-23 17:03 | PT-OP ANOTE ---
Msg left notifying pt of expiration date of therapy 10/08/23 and that she has no further therapy visits scheduled. Requested pt call to discuss her rehab, but if she is choosing not to continue to also call and let us know. Notified pt that she has not attended 2 of her scheduled visits. [facility] number given and times available to call to reach PT.
--- NOTE | 2023-11-30 17:33 | PT.OPDS ---
Current Diagnoses Muscle weakness (generalized) (09/10/23) Stress incontinence (female) (male) (09/10/23) Urge incontinence (09/10/23) Visit Care Team Role Provider Type Gustavo Neal Family Provider Non-Staff Primary Care Provider Specialty: Medical Address: [address] [place] [address], [id number] Email: Josi Samaniego DO Attending Provider Non-Staff Referring Provider Specialty: Medical Address: [address] [place] [address], [phone] Fax: Email: Visit Number Visit Number 08/19 Discharge Summary PT-OP-B Current Condition Start: 08/06/23 18:40 Freq: Status: Active Protocol: Document 08/10/23 13:45 LRN (Rec: 08/10/23 17:26 LRN [id number]) Current Condition History of Current Condition Onset Date 2 months after of son, History of Current Condition 2 months after of son, . Son is 13 months old. Urinary leakage with coughing , sneezing, hard laughing, with exer squatting. Doesn't run. Prior Treatments and Tests none Developmental History Developmental History Son born 06/10/22. Her job requires lifting of wgts as high as 50-100# (with help). 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 Treatment Goals Patient/Caregiver Goals Pt goal is: strengthening the PF to prevent urinary leakage with coughing, sneezing, hard laughing, exer squatting, and sometimes lifting. HEP. Personal Factors Other Personal Factors That May Effect Blood pressure being monitored Therapy/Recovery for HBP. PT-OP-C Subjective Start: 08/06/23 18:40 Freq: Status: Active Protocol: Document 09/10/23 13:50 LRN (Rec: 09/10/23 14:38 LRN [id number]) OP-PT Subjective Patient Comments Patient Comments Leaking with an urge is about the same, just a little bit. PT-OP-I Pelvic Floor Start: 08/06/23 18:40 Freq: Status: Active Protocol: Document 09/10/23 13:50 LRN (Rec: 09/10/23 14:38 LRN [id number]) Pelvic Floor Assessment SEMG (uV) Baseline 0.9 Quick Contraction 12 10 Second Contraction 16.1 Recruitment Pattern Good Relaxation Fair Holding Fair Stability of Hold Poor/Slow SEMG Stability of Rest Fair Comments Pelvic Floor Comments Quick Flicks: 10 reps strength (uV's): avg work 12, avg rest 6.8. 20 reps strength (uV's): avg work 10.6, avg rest 6.3. Long Holds: 10 reps strength (uV's): avg work 16.1, avg rest 4.8. 20 reps strength (uV's): avg work 14.5, avg rest 3.4. PT-OP-J Posture/Palpation/Skin Start: 08/06/23 18:40 Freq: Status: Active Protocol: Document 08/10/23 13:45 LRN (Rec: 08/10/23 17:26 [facility] [id number]) Posture Evaluation Position Standing T-Spine Posture Flattened Thorax Posture Bases Flared L-Spine Posture Increased Lordosis Shoulder Posture (R) Elevated Scapula Posture (L) Neutral,(R) Neutral Arm Posture (L) Internally Rotated,(R) Internally Rotated Pelvis Posture Anteriorly Tilted Weight Distribution Balanced Foot Arch (L) High Arch,(R) High Arch Palpation Assessment Location Abdomen Palpation Location DR Palpation Details Umbilicus 3 above: closed Umbilicus 2 above: 1 finger widths, very shallow. Umbilicus 1 above: 1 finger width, shallow Umbilicus Umbilicus: 1 below: closed PT-OP-K Range of Motion Start: 08/06/23 18:40 Freq: Status: Active Protocol: Document 08/10/23 13:45 LRN (Rec: 08/10/23 17:26 [facility] [id number]) Lumbar Spine Range of Motion Lumbar Spine Active Degrees Testing Position Standing Flexion 90 Extension 5 Rotation Left 20 Rotation Right 20 Lateral Flexion Left 20 Lateral Flexion Right 20 Hip Goniometric Range of Motion Hip Right Passive Testing Position Supine Internal Rotation 30 External Rotation 70 Comments Pop sound occurs with active R hip flexion. Left Passive Testing Position Supine Internal Rotation 30 External Rotation 60 PT-OP-M Strength Start: 08/06/23 18:40 Freq: Status: Active Protocol: Document 08/10/23 13:45 LRN (Rec: 08/10/23 17:26 LRN [id number]) Trunk Strength Trunk Manual Muscle Testing Core Stabilization Pt is not able to maintain core stability with lifting of legs against gravity and with MMT of LE's Hip Strength Hip Manual Muscle Testing Right Comments Strength is 5/5. Left Extension (S1) 3 Fair Comments Strength is 5/5 except as indicated above. PT-OP-T Assessment and Plan Start: 08/06/23 18:40 Freq: Status: Active Protocol: Document 11/30/23 17:04 LRN (Rec: 11/30/23 17:07 LRN [id number]) Physical Therapy Assessment Goals Three Impairment PF weakness with urinary leakage with a strong urge. Short Term Goal (STG) Pt will be educated in urinary delay technique. 08/16/23 Pt educated in urinary delay technique. 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 LTG Duration 8 wks-10/29/23 (11/30/23: NOT MET GOAL) Two Impairment Stress urinary incontinence with leakage 1-2x/day Short Term Goal (STG) Pt will be educated in intra- abdominal core pressure management by coordinating Kegels and breathwork with transfers, ADLs, body mechanics, and exercise. 08/27/23: Pt educated in core pressure management with transfers. STG Duration 5 wks-09/10/23 progressing 08/27/23 (need for ADLs body mech & ex) Half-Way Goal (LTG) Increase PF strength with pt able to maintain continence with coughing, sneezing, hard laughing, with exer squatting , and sometimes lifting, reducing or eliminating onset of urinary leakage. LTG Duration 8 wks-10/29/23 (11/30/23: NOT MET GOAL) One Impairment Pt lacks appropriate self care HEP. Short Term Goal (STG) Pt will be able to isolate a PF contraction without overuse of the outer abdominal, gluteal, and hip AD muscles. 08/16/23: I/S pt in PF contraction in isolation of substitute ms. Pt able to isolate if concentrating on isolation. 09/10/23: Pt appears to have a good understanding of isolating PF contractions, although cuing needed during individual Kegel ex's. STG Duration 3 wks-09/01/23 (09/10/23: MET GOAL) Half-Way Goal (LTG) Pt will be independent with a self care HEP of PF strengthening, L hip strengthening, and hip ROM (IR , L ER) exercises. 08/16/23: Kegels (quick/long holds initially issued ), Aggrevator, and urge deference technique. LTG Duration 11 wks-10/29/23 progressed 08/16/23 Assessment Summary Assessment Pt is a 27 yo female being seen for stress urinary incontinence due to PF weakness with greatest weakness in anterior (slight cytocele) and L lateral wall and lower abdominal pain if waiting to long to urinate, bowels are normal, tenderness of Pelvic Clock 6-11. Pt was seen for 4 treatment visits and last seen 09/10/23. Attempts at reaching the pt was unsuccessful. The patient is being discharged from physical therapy. Physical Therapy Plan Discharge Physical Therapy Discharge Reasons No Longer Attending PT Discharge Comments Thank you for your referral.
--- NOTE | 2024-05-08 10:30 | PT.OPDS ---
Current Diagnoses Muscle weakness (generalized) (09/10/23) Stress incontinence (female) (male) (09/10/23) Urge incontinence (09/10/23) Visit Care Team Role Provider Type Gustavo Neal Family Provider Non-Staff Primary Care Provider Specialty: Medical Address: [address] [place] [address], [phone] Email: Josi Samaniego DO Attending Provider Non-Staff Referring Provider Specialty: Medical Address: [address] [place] [address], [phone] Email: Visit Number Visit Number 08/19 Discharge Summary PT-OP-B Current Condition Start: 08/06/23 18:40 Freq: Status: Active Protocol: Document 08/10/23 13:45 LRN (Rec: 08/10/23 17:26 LRN [id number]) Current Condition History of Current Condition Onset Date 2 months after of son, History of Current Condition 2 months after of son, . Son is 13 months old. Urinary leakage with coughing , sneezing, hard laughing, with exer squatting. Doesn't run. Prior Treatments and Tests none Developmental History Developmental History Son born 06/10/22. Her job requires lifting of wgts as high as 50-100# (with help). 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 Treatment Goals Patient/Caregiver Goals Pt goal is: strengthening the PF to prevent urinary leakage with coughing, sneezing, hard laughing, exer squatting, and sometimes lifting. HEP. Personal Factors Other Personal Factors That May Effect Blood pressure being monitored Therapy/Recovery for HBP. PT-OP-C Subjective Start: 08/06/23 18:40 Freq: Status: Active Protocol: Document 09/10/23 13:50 LRN (Rec: 09/10/23 14:38 LRN [id number]) OP-PT Subjective Patient Comments Patient Comments Leaking with an urge is about the same, just a little bit. PT-OP-I Pelvic Floor Start: 08/06/23 18:40 Freq: Status: Active Protocol: Document 09/10/23 13:50 LRN (Rec: 09/10/23 14:38 LRN [id number]) Pelvic Floor Assessment SEMG (uV) Baseline 0.9 Quick Contraction 12 10 Second Contraction 16.1 Recruitment Pattern Good Relaxation Fair Holding Fair Stability of Hold Poor/Slow SEMG Stability of Rest Fair Comments Pelvic Floor Comments Quick Flicks: 10 reps strength (uV's): avg work 12, avg rest 6.8. 20 reps strength (uV's): avg work 10.6, avg rest 6.3. Long Holds: 10 reps strength (uV's): avg work 16.1, avg rest 4.8. 20 reps strength (uV's): avg work 14.5, avg rest 3.4. PT-OP-J Posture/Palpation/Skin Start: 08/06/23 18:40 Freq: Status: Active Protocol: Document 08/10/23 13:45 LRN (Rec: 08/10/23 17:26 [facility] [id number]) Posture Evaluation Position Standing T-Spine Posture Flattened Thorax Posture Bases Flared L-Spine Posture Increased Lordosis Shoulder Posture (R) Elevated Scapula Posture (L) Neutral,(R) Neutral Arm Posture (L) Internally Rotated,(R) Internally Rotated Pelvis Posture Anteriorly Tilted Weight Distribution Balanced Foot Arch (L) High Arch,(R) High Arch Palpation Assessment Location Abdomen Palpation Location DR Palpation Details Umbilicus 3 above: closed Umbilicus 2 above: 1 finger widths, very shallow. Umbilicus 1 above: 1 finger width, shallow Umbilicus Umbilicus: 1 below: closed PT-OP-K Range of Motion Start: 08/06/23 18:40 Freq: Status: Active Protocol: Document 08/10/23 13:45 LRN (Rec: 08/10/23 17:26 [facility] [id number]) Lumbar Spine Range of Motion Lumbar Spine Active Degrees Testing Position Standing Flexion 90 Extension 5 Rotation Left 20 Rotation Right 20 Lateral Flexion Left 20 Lateral Flexion Right 20 Hip Goniometric Range of Motion Hip Right Passive Testing Position Supine Internal Rotation 30 External Rotation 70 Comments Pop sound occurs with active R hip flexion. Left Passive Testing Position Supine Internal Rotation 30 External Rotation 60 PT-OP-M Strength Start: 08/06/23 18:40 Freq: Status: Active Protocol: Document 08/10/23 13:45 LRN (Rec: 08/10/23 17:26 LRN [id number]) Trunk Strength Trunk Manual Muscle Testing Core Stabilization Pt is not able to maintain core stability with lifting of legs against gravity and with MMT of LE's Hip Strength Hip Manual Muscle Testing Right Comments Strength is 5/5. Left Extension (S1) 3 Fair Comments Strength is 5/5 except as indicated above. PT-OP-T Assessment and Plan Start: 08/06/23 18:40 Freq: Status: Active Protocol: Document 05/08/24 10:20 LRN (Rec: 05/08/24 10:28 LRN [id number]) Physical Therapy Assessment Goals Three Impairment PF weakness with urinary leakage with a strong urge. Short Term Goal (STG) Pt will be educated in urinary delay technique. 08/16/23 Pt educated in urinary delay technique. STG Duration 2 wks- 08/25/23 (08/16/23: MET GOAL) Assisted Goal (LTG) Pt will be able to maintain continence in the presence of a strong urge and while walking to the bathroom. LTG Duration 8 wks-10/29/23 (11/30/23: NOT MET GOAL) Two Impairment Stress urinary incontinence with leakage 1-2x/day Short Term Goal (STG) Pt will be educated in intra- abdominal core pressure management by coordinating Kegels and breathwork with transfers, ADLs, body mechanics, and exercise. 08/27/23: Pt educated in core pressure management with transfers. STG Duration 5 wks-09/10/23 (05/08/24: NOT MET GOAL) Snowblower Mechanic Goal (LTG) Increase PF strength with pt able to maintain continence with coughing, sneezing, hard laughing, with exer squatting , and sometimes lifting, reducing or eliminating onset of urinary leakage. LTG Duration 8 wks-10/29/23 (11/30/23: NOT MET GOAL) One Impairment Pt lacks appropriate self care HEP. Short Term Goal (STG) Pt will be able to isolate a PF contraction without overuse of the outer abdominal, gluteal, and hip AD muscles. 08/16/23: I/S pt in PF contraction in isolation of substitute ms. Pt able to isolate if concentrating on isolation. 09/10/23: Pt appears to have a good understanding of isolating PF contractions, although cuing needed during individual Kegel ex's. STG Duration 3 wks-09/01/23 (09/10/23: MET GOAL) Assisted Goal (LTG) Pt will be independent with a self care HEP of PF strengthening, L hip strengthening, and hip ROM (IR , L ER) exercises. 08/16/23: Kegels (quick/long holds initially issued ), Aggrevator, and urge deference technique. LTG Duration 11 wks-10/29/23 (05/08/24: NOT MET GOAL) Assessment Summary Assessment Pt is a 28 yo female who was being seen for stress urinary incontinence due to PF weakness. The pt attended 3 treatment visits, was last seen 09/10/23, cancelled her last appointment, and did not reschedule further visits. The pt did not meet all her goals. She is being discharged today due to lack of attendance. Physical Therapy Plan Discharge Physical Therapy Discharge Reasons No Longer Attending PT Discharge Comments Thank you for your referral.
== END 2024-05-24 08:42 | disposition home or self-care (01) ==
LOC: PHYS 13:45
PROVIDERS: Family Provider Student in an Organized Health Care Education/Training Program; PCP Student in an Organized Health Care Education/Training Program; Referring Provider Preventive Medicine Aerospace Medicine; Visit Provider Preventive Medicine Aerospace Medicine
DX: N39.3 Stress incontinence (female) (male) (principal); N39.41 Urge incontinence; M62.81 Muscle weakness (generalized)
CPT/HCPCS: 97110; 97112; 97162; 97530; 97535